=== PATIENT | male | born 1945 | race Caucasian/White ===

== ENCOUNTER 2020-09-18 14:44 | Outpatient (REF) | payer MEDICARE, SELFPAY ==
[2020-09-18 15:09] LABS: MANUAL DIFF FLAG NO
[2020-09-18 15:16] LABS: Basophils Absolute Auto 0.1 X10*3/uL (0.0-0.2); Basophils Percent Auto 0.7 % (0-2); Eosinophils Absolute Auto 0.2 X10*3/uL (0.0-0.4); Eosinophils Percent Auto 2.5 % (0-4); Hematocrit 45.7 % (42-52); Imm Gran Abs Auto 0.04 X10*3/uL (0.00-0.03); Imm Gran Pct Auto 0.4 % (0.0-0.4); Lymphocytes Absolute Auto 2.3 X10*3/uL (1.2-4.9); Lymphocytes Percent Auto 24.9 % (20-40); Mean Corpuscular HGB Conc 32.8 g/dl (31.0-36.0); Mean Corpuscular Hemoglobin 29.6 pg (27.0-33.0); Mean Corpuscular Volume 90.1 fL (80-98); Mean Platelet Volume 10.3 fL (9.4-12.4); Monocytes Absolute Auto 0.7 X10*3/uL (0.1-1.2); Monocytes Percent Auto 8.1 % (2-11); Neutrophils Absolute Auto 5.8 X10*3/uL (2.0-8.3); Neutrophils Percent Auto 63.4 % (45-73); Platelet Count 272 X10*3/uL (160-400); Red Blood Count 5.07 X10*6/uL (4.60-5.80); Red Cell Distribution Width 14.3 % (11.0-16.0); White Blood Count 9.1 X10*3/uL (4.8-10.8)
[2020-09-18 16:37] LABS: Thyroid Stimulating Hormone 1.32 uIU/mL (0.32-4.0)
[2020-09-18 16:58] LABS: Alanine Aminotransferase 37 U/L (0-40); Albumin Level 4.2 g/dL (3.5-5.0); Alkaline Phosphatase 107 U/L (39-117); Anion Gap 11 (12-20); Aspartate Amino Transferase 21 U/L (5-37); Bilirubin Total 0.5 mg/dL (0.0-1.0); Blood Urea Nitrogen 16 mg/dL (9-16); Calcium 9.6 mg/dL (8.4-10.2); Carbon Dioxide 30 mmol/L (22-29); Chloride 102 mmol/L (96-108); Cholesterol 209 mg/dL; Estimated Glomerular Filt Rate > 60; Glucose Random 85 mg/dL (60-115); HDL Cholesterol 44 mg/dL; LDL Cholesterol Calculated 127 mg/dl; Potassium 4.3 mmol/L (3.3-5.1); Sodium 139 mmol/L (135-145); Triglycerides 190 mg/dL
== END 2020-09-18 14:45 | disposition home or self-care (01) ==
LOC: HO.LAB 14:44
PROVIDERS: PCP Internal Medicine; Visit Provider Internal Medicine
DX: Z00.01 Encounter for general adult medical examination with abnormal findings (principal); F10.20 Alcohol dependence, uncomplicated; I10 Essential (primary) hypertension; M10.9 Gout, unspecified; Z72.0 Tobacco use
CPT/HCPCS: 36415; 80053; 80061; 84443; 84550; 85025

== ENCOUNTER 2020-12-26 14:05 | Outpatient (REF) | payer MEDICARE, SELFPAY ==
[2020-12-26 14:47] LABS: Uric Acid 7.2 mg/dL (3.4-7.0)
== END 2020-12-26 14:06 | disposition home or self-care (01) ==
LOC: HO.LAB 14:05
PROVIDERS: PCP Internal Medicine; Visit Provider Internal Medicine
DX: M10.9 Gout, unspecified (principal)
CPT/HCPCS: 36415; 84550

== ENCOUNTER 2021-03-13 16:19 | Outpatient (REF) | payer MEDICARE, SELFPAY ==
[2021-03-13 16:31] LABS: MANUAL DIFF FLAG NO
[2021-03-13 17:02] LABS: Basophils Absolute Auto 0.1 X10*3/uL (0.0-0.2); Basophils Percent Auto 0.7 % (0-2); Eosinophils Absolute Auto 0.1 X10*3/uL (0.0-0.4); Hemoglobin 12.1 g/dl (14.0-18.0); Imm Gran Abs Auto 0.06 X10*3/uL (0.00-0.03); Imm Gran Pct Auto 0.5 % (0.0-0.4); Lymphocytes Absolute Auto 1.1 X10*3/uL (1.2-4.9); Lymphocytes Percent Auto 9.4 % (20-40); Mean Corpuscular HGB Conc 31.8 g/dl (31.0-36.0); Mean Corpuscular Hemoglobin 27.9 pg (27.0-33.0); Mean Corpuscular Volume 87.6 fL (80.0-98.0); Mean Platelet Volume 10.5 fL (9.4-12.4); Monocytes Absolute Auto 0.9 X10*3/uL (0.1-1.2); Monocytes Percent Auto 7.8 % (2-11); Neutrophils Absolute Auto 9.6 x10*3/uL (2.0-8.3); Neutrophils Percent Auto 80.6 % (45-73); Platelet Count 484 X10*3/uL (160-400); Red Blood Count 4.34 X10*6/uL (4.60-5.80); Red Cell Distribution Width 13.5 % (11.0-16.0)
[2021-03-13 17:27] LABS: Alanine Aminotransferase 29 U/L (0-40); Albumin Level 3.7 g/dL (3.5-5.0); Alkaline Phosphatase 187 U/L (39-117); Anion Gap 20 (12-20); Aspartate Amino Transferase 25 U/L (5-37); Bilirubin Total 0.8 mg/dL (0.0-1.0); Blood Urea Nitrogen 11 mg/dL (9-16); C Reactive Protein 24.35 mg/dL (< or = 0.50); Calcium 9.1 mg/dL (8.4-10.2); Carbon Dioxide 24 mmol/L (22-29); Chloride 98 mmol/L (96-108); Estimated Glomerular Filt Rate > 60; Glucose Random 105 mg/dL (60-115); Sodium 138 mmol/L (135-145); Total Protein 7.2 g/dL (6.5-8.0)
[2021-03-13 17:38] LABS: Erythrocyte Sedimentation Rate 89 MM/HR (0-15)
[2021-03-13 17:48] LABS: Thyroid Stimulating Hormone 1.51 uIU/mL (0.32-4.0)
== END 2021-03-13 16:20 | disposition home or self-care (01) ==
LOC: HO.LAB 16:19
PROVIDERS: PCP Internal Medicine; Visit Provider Internal Medicine
DX: R63.0 Anorexia (principal); R63.4 Abnormal weight loss
CPT/HCPCS: 36415; 80053; 84443; 85025; 85652; 86140

== ENCOUNTER 2021-03-14 | Outpatient (REF) | payer MEDICARE, SELFPAY ==
[2021-03-14 13:47] LABS: Appearance Urine HAZY; Color Urine DK YELLOW; Glucose Urine UA NEG (NEG); Leukocyte Esterase Urine NEG (NEG); Nitrite Urine NEG (NEG); Specific Gravity - Urine 1.025 (1.005-1.025); Urine Blood NEG (NEG); Urine Ketones 15 MG/DL (NEG); Urine Protein TRACE MG/DL (NEG-TRACE)
[2021-03-14 13:57] LABS: RBC Urine 0 /HPF (0)
[2021-03-14 13:58] LABS: Amorphous Sediment Urine TRACE /LPF; Mucus Urine 1+ /LPF; Squamous Epithelial Cell Urine TRACE /LPF
== END 2021-03-14 00:01 | disposition home or self-care (01) ==
LOC: HO.LNP
PROVIDERS: Visit Provider Internal Medicine
DX: R63.0 Anorexia (principal)
CPT/HCPCS: 81001

== ENCOUNTER 2021-03-24 12:49 | Outpatient (REF) | payer MEDICARE, SELFPAY ==
[2021-03-24 13:03] LABS: MANUAL DIFF FLAG NO
[2021-03-24 13:53] LABS: Basophils Absolute Auto 0.1 X10*3/uL (0.0-0.2); Basophils Percent Auto 0.8 % (0-2); Eosinophils Absolute Auto 0.1 X10*3/uL (0.0-0.4); Eosinophils Percent Auto 1.2 % (0-4); Hematocrit 35.1 % (42.0-52.0); Imm Gran Abs Auto 0.04 X10*3/uL (0.00-0.03); Imm Gran Pct Auto 0.4 % (0.0-0.4); Immature Retic Fraction 16.6 % (2.3-13.4); Lymphocytes Absolute Auto 1.3 X10*3/uL (1.2-4.9); Lymphocytes Percent Auto 13.5 % (20-40); Mean Corpuscular HGB Conc 31.3 g/dl (31.0-36.0); Mean Corpuscular Hemoglobin 27.6 pg (27.0-33.0); Mean Platelet Volume 10.5 fL (9.4-12.4); Monocytes Absolute Auto 0.8 X10*3/uL (0.1-1.2); Monocytes Percent Auto 8.4 % (2-11); Neutrophils Absolute Auto 7.4 x10*3/uL (2.0-8.3); Neutrophils Percent Auto 75.7 % (45-73); Platelet Count 519 X10*3/uL (160-400); Red Blood Count 3.99 X10*6/uL (4.60-5.80); Retic HGB Equivalent 26.9 pg (30.0-35.0); Reticulocyte Percent 1.3 % (0.5-1.8); Reticulocytes Absolute 0.053 X10*6/uL (0.026-0.095); White Blood Count 9.8 X10*3/uL (4.8-10.8)
[2021-03-24 14:26] LABS: Alanine Aminotransferase 54 U/L (0-40); Aspartate Amino Transferase 59 U/L (5-37); C Reactive Protein 15.93 mg/dL (< or = 0.50); Iron 20 mcg/dL (45-160); Percent Iron Saturation 10 % (15-50); Total Iron Binding Capacity 207 mcg/dL (228-428); Unsaturated Iron Binding 187 ug/dL
[2021-03-24 14:37] LABS: Erythrocyte Sedimentation Rate 100 MM/HR (0-15)
[2021-03-24 14:58] LABS: Ferritin 1169 ng/mL (20-250)
[2021-03-24 15:13] LABS: Vitamin B12 408 pg/mL (200-900)
== END 2021-03-24 12:50 | disposition home or self-care (01) ==
LOC: HO.LAB 12:49
PROVIDERS: Visit Provider Internal Medicine
DX: D64.9 Anemia, unspecified (principal); R63.4 Abnormal weight loss; R16.0 Hepatomegaly, not elsewhere classified
CPT/HCPCS: 36415; 82607; 82728; 82746; 83540; 84450; 84460; 85025; 85045; 85652; 86140

== ENCOUNTER 2021-04-03 11:51 | Outpatient (REF) | payer MEDICARE, SELFPAY ==
--- NOTE | ~2021-04-03 | CT_ITS ---
EXAMINATION: CT abdomen pelvis w con, CT chest w con CLINICAL INFORMATION: Reason for Exam WEIGHT LOSS, ANEMIA COMPARISON: None. TECHNIQUE: IV contrast enhanced CT of the chest, abdomen and pelvis with multiple coronal and sagittal reformatted images. Intravenous Contrast: 85. Oral contrast utilized. This CT examination was performed using dose optimization techniques as appropriate, variously including the following: *Automated exposure control *Adjustment of mA and/or kV according to patient size (this includes techniques or standardized protocols for targeted exams where dose is matched to indication/reason for exam; i.e. extremities or head) *Use of iterative reconstruction technique DLP: 601 mGy-cm FINDINGS: Lungs: Mild chronic appearing biapical pleural parenchymal scarring is noted. Minimal scattered subpleural reticular nodular opacities are noted and have the appearance of minimal chronic parenchymal scarring. No suspicious pulmonary nodules. No focal pulmonary consolidation. Grossly normal pulmonary vasculature. Mediastinum: Mild scattered calcific and noncalcific atherosclerosis. Normal aortic caliber. Normal heart size. Partial visualization of moderate coronary artery calcific atherosclerosis with calcifications noted in the left anterior descending and right coronary arteries though the right coronary artery is largely obscured from visualization by motion artifact. CHEST WALL: No axillary lymphadenopathy or focal inflammatory changes. Liver: Small number scattered subcentimeter rounded low density foci which are too small to specifically characterize but are most likely to represent simple cysts are noted. A 2.7 cm diameter rounded low-density (6 Hounsfield units) focus is present in segment 5 and has the appearance of a simple cyst. Biliary system: Gallbladder is partially contracted. No biliary duct dilatation. Pancreas: Normal. Spleen: Normal. Adrenal glands: Normal. Kidneys: Benign-appearing low density 4.5 cm parapelvic cyst is present in the left kidney. A 4.8 cm diameter rounded low-density cyst is associated with the superior pole the right kidney. Both findings are benign in appearance and do not specifically warranted additional imaging follow-up. A 5 mm rounded low-density focus is present in the interpolar segment of the left kidney is too small to specifically characterize but is most likely to be benign. Making allowances for probable vascular calcifications, no definitive urolithiasis is visualized. Urinary bladder: Physiologically distended. Pelvic viscera: Normal size of the prostate. Normal appearance of the seminal vesicles. Gastrointestinal system: No intestinal dilatation or mural thickening. Normal appearance of the appendix. Oral contrast agent is noted within large and small bowel segments. No free intraperitoneal fluid or gas collections. Normal sigmoid and small bowel mesenteries. Normal appearance of the stomach. Abdominal wall: No hernias. Abdominal lymphovascular system: Diffuse calcific and noncalcific atherosclerosis. No lymphadenopathy. Osseous structures: Marked intervertebral disc space narrowing L5-S1 partial visualization of a mild posterior broad-based disc bulge. Multilevel anterior endplate osteophytosis within the thoracic and lumbar spine. No vertebral body compression deformities. Mild multilevel facet hypertrophic changes. CT/CT abdomen pelvis w con IMPRESSION: IV and oral contrast enhanced CT of the chest, abdomen and pelvis: *No acute abnormalities or findings suspicious for neoplasm. *Diffuse atherosclerosis including partially visualized multifocal coronary artery calcific atherosclerosis. *L5-S1 degenerative disc disease and partially visualized mild posterior broad-based disc bulge.
[2021-04-03] MEDS: iohexoL 350 MG/ML 100 ML INFUS..BTL IV (15:09)
[2021-04-03] MEDS: Barium Sulfate Oral (Berry) 450 ML ORAL.SUSP 900 ML PO (15:10)
== END 2021-04-03 11:52 | disposition home or self-care (01) ==
LOC: HO.CT 11:51
PROVIDERS: Visit Provider Internal Medicine
DX: R63.4 Abnormal weight loss (principal); D64.9 Anemia, unspecified; R16.0 Hepatomegaly, not elsewhere classified; D72.829 Elevated white blood cell count, unspecified; Z72.0 Tobacco use
CPT/HCPCS: 71260; 74177; Q9967

== ENCOUNTER 2021-04-17 15:32 | Outpatient (REF) | payer MEDICARE, SELFPAY ==
[2021-04-17 15:44] LABS: MANUAL DIFF FLAG NO
[2021-04-17 17:09] LABS: Basophils Absolute Auto 0.1 X10*3/uL (0.0-0.2); Basophils Percent Auto 0.9 % (0-2); Eosinophils Absolute Auto 0.1 X10*3/uL (0.0-0.4); Eosinophils Percent Auto 1.2 % (0-4); Hematocrit 32.9 % (42.0-52.0); Hemoglobin 9.9 g/dl (14.0-18.0); Imm Gran Abs Auto 0.03 X10*3/uL (0.00-0.03); Imm Gran Pct Auto 0.3 % (0.0-0.4); Lymphocytes Absolute Auto 1.1 X10*3/uL (1.2-4.9); Lymphocytes Percent Auto 12.3 % (20-40); Mean Corpuscular HGB Conc 30.1 g/dl (31.0-36.0); Mean Corpuscular Hemoglobin 25.9 pg (27.0-33.0); Mean Corpuscular Volume 86.1 fL (80.0-98.0); Mean Platelet Volume 10.5 fL (9.4-12.4); Monocytes Absolute Auto 0.8 X10*3/uL (0.1-1.2); Monocytes Percent Auto 8.9 % (2-11); Neutrophils Percent Auto 76.4 % (45-73); Platelet Count 504 X10*3/uL (160-400); Red Blood Count 3.82 X10*6/uL (4.60-5.80); Red Cell Distribution Width 14.2 % (11.0-16.0); White Blood Count 9.2 X10*3/uL (4.8-10.8)
[2021-04-17 17:40] LABS: Alanine Aminotransferase 31 U/L (0-40); Albumin Level 3.5 g/dL (3.5-5.0); Alkaline Phosphatase 188 U/L (39-117); Anion Gap 16 (12-20); Aspartate Amino Transferase 31 U/L (5-37); Bilirubin Total 0.4 mg/dL (0.0-1.0); Blood Urea Nitrogen 11 mg/dL (9-16); Calcium 9.2 mg/dL (8.4-10.2); Carbon Dioxide 25 mmol/L (22-29); Chloride 103 mmol/L (96-108); Estimated Glomerular Filt Rate > 60; Glucose Random 113 mg/dL (60-115); Iron 16 mcg/dL (45-160); Percent Iron Saturation 8 % (15-50); Potassium 4.4 mmol/L (3.3-5.1); Sodium 140 mmol/L (135-145); Total Iron Binding Capacity 207 mcg/dL (228-428); Total Protein 7.5 g/dL (6.5-8.0); Unsaturated Iron Binding 191 ug/dL
[2021-04-17 17:51] LABS: Ferritin 1050 ng/mL (20-250); Thyroid Stimulating Hormone 1.47 uIU/mL (0.32-4.0)
[2021-04-17 17:55] LABS: Uric Acid 5.2 mg/dL (3.4-7.0)
[2021-04-17 18:18] LABS: Erythrocyte Sedimentation Rate 102 MM/HR (0-15)
[2021-04-18 12:38] LABS: Immature Retic Fraction 14.1 % (2.3-13.4); Retic HGB Equivalent 25.6 pg (30.0-35.0); Reticulocyte Percent 1.5 % (0.5-1.8); Reticulocytes Absolute 0.056 X10*6/uL (0.026-0.095)
== END 2021-04-17 15:33 | disposition home or self-care (01) ==
LOC: HO.LAB 15:32
PROVIDERS: PCP Internal Medicine; Visit Provider Internal Medicine
DX: R63.4 Abnormal weight loss (principal); M10.9 Gout, unspecified; D64.9 Anemia, unspecified
CPT/HCPCS: 36415; 80053; 82728; 83540; 84134; 84443; 84550; 85025; 85045; 85652; 86140

== ENCOUNTER 2021-04-21 14:08 | Outpatient (REF) | payer MEDICARE, SELFPAY ==
--- NOTE | ~2021-04-21 | MR_ITS ---
EXAMINATION: MR BRAIN WITHOUT AND WITH CONTRAST CLINICAL INFORMATION: New-onset headache. Lump on top of head. Anorexia. Loss of weight. COMPARISON: None available. TECHNIQUE: MRI of the brain was obtained using routine sequences without and following the administration of 6 mL of Gadavist intravenous contrast. FINDINGS: No focal restricted diffusion is demonstrated to suggest acute or subacute cerebral ischemia. No evidence of acute or chronic hemorrhagic products on heme-sensitive imaging. Scattered periventricular and deep white matter T2 FLAIR hyperintensities consistent with mild underlying microangiopathy. Proportional prominence of the ventricles and sulcal spaces without evidence of obstructive hydrocephalus. No abnormal mass effect. No midline shift. Normal appearance of the pituitary gland. Normal positioning of the cerebellar tonsils. Normal arterial and venous vascular flow voids are present. No abnormal contrast enhancement. Normal, homogeneous marrow signal. No demonstrated overt abnormalities of the scalp. Mild mucosal thickening of the paranasal sinuses. Mild atelectasis of the right maxillary sinus. No signal abnormalities within the mastoids. MR/MR head/brain wo/w con IMPRESSION: 1. No acute intracranial abnormalities. No abnormal intracranial enhancement. 2. Mild underlying microangiopathy and generalized cerebral volume loss.
== END 2021-04-21 14:09 | disposition home or self-care (01) ==
LOC: HO.MRI 14:08
PROVIDERS: PCP Internal Medicine; Visit Provider Internal Medicine
DX: R51.9 Headache, unspecified (principal); R63.4 Abnormal weight loss; R63.0 Anorexia
CPT/HCPCS: 70553; A9585

== ENCOUNTER 2021-05-22 10:30 | Outpatient (REF) | payer MEDICARE, SELFPAY ==
[2021-05-22 10:49] LABS: MANUAL DIFF FLAG NO
[2021-05-22 11:33] LABS: Basophils Absolute Auto 0.1 X10*3/uL (0.0-0.2); Basophils Percent Auto 0.8 % (0-2); Eosinophils Absolute Auto 0.1 X10*3/uL (0.0-0.4); Eosinophils Percent Auto 0.8 % (0-4); Hemoglobin 9.6 g/dl (14.0-18.0); Imm Gran Abs Auto 0.02 X10*3/uL (0.00-0.03); Imm Gran Pct Auto 0.3 % (0.0-0.4); Lymphocytes Absolute Auto 1.1 X10*3/uL (1.2-4.9); Lymphocytes Percent Auto 14.3 % (20-40); Mean Corpuscular Hemoglobin 24.6 pg (27.0-33.0); Mean Corpuscular Volume 82.1 fL (80.0-98.0); Mean Platelet Volume 10.3 fL (9.4-12.4); Monocytes Absolute Auto 0.8 X10*3/uL (0.1-1.2); Neutrophils Absolute Auto 5.7 x10*3/uL (2.0-8.3); Neutrophils Percent Auto 73.8 % (45-73); Platelet Count 442 X10*3/uL (160-400); Red Cell Distribution Width 15.9 % (11.0-16.0); White Blood Count 7.7 X10*3/uL (4.8-10.8)
[2021-05-22 12:08] LABS: Erythrocyte Sedimentation Rate 97 MM/HR (0-15)
[2021-05-22 12:12] LABS: Alanine Aminotransferase 30 U/L (0-40); Albumin Level 3.7 g/dL (3.5-5.0); Alkaline Phosphatase 144 U/L (39-117); Amylase 46 U/L (28-100); Anion Gap 14 (12-20); Aspartate Amino Transferase 27 U/L (5-37); Bilirubin Total 0.3 mg/dL (0.0-1.0); Blood Urea Nitrogen 15 mg/dL (9-16); C Reactive Protein 9.14 mg/dL (< or = 0.50); Calcium 9.4 mg/dL (8.4-10.2); Carbon Dioxide 27 mmol/L (22-29); Chloride 103 mmol/L (96-108); Estimated Glomerular Filt Rate > 60; Glucose Random 116 mg/dL (60-115); Lipase 9 U/L (8-78); Potassium 4.3 mmol/L (3.3-5.1); Sodium 140 mmol/L (135-145); Total Protein 7.7 g/dL (6.5-8.0); Uric Acid 6.5 mg/dL (3.4-7.0)
[2021-05-22 12:33] LABS: TSH reflex Free T4 1.17 uIU/mL (0.32-4.0)
== END 2021-05-22 10:31 | disposition home or self-care (01) ==
LOC: HO.LAB 10:30
PROVIDERS: PCP Internal Medicine; Visit Provider Internal Medicine
DX: R63.4 Abnormal weight loss (principal); R68.81 Early satiety; M10.9 Gout, unspecified
CPT/HCPCS: 36415; 80053; 82150; 83690; 84443; 84550; 85025; 85652; 86140

== ENCOUNTER 2021-06-18 13:38 | Outpatient (REF) | payer MEDICARE, SELFPAY ==
[2021-06-18 14:01] LABS: MANUAL DIFF FLAG NO
[2021-06-18 14:17] LABS: Basophils Absolute Auto 0.1 X10*3/uL (0.0-0.2); Basophils Percent Auto 0.7 % (0-2); Eosinophils Absolute Auto 0.1 X10*3/uL (0.0-0.4); Eosinophils Percent Auto 1.4 % (0-4); Hematocrit 34.7 % (42.0-52.0); Hemoglobin 10.4 g/dl (14.0-18.0); Imm Gran Abs Auto 0.03 X10*3/uL (0.00-0.03); Imm Gran Pct Auto 0.4 % (0.0-0.4); Lymphocytes Absolute Auto 1.2 X10*3/uL (1.2-4.9); Lymphocytes Percent Auto 14.5 % (20-40); Mean Corpuscular Hemoglobin 24.7 pg (27.0-33.0); Mean Corpuscular Volume 82.4 fL (80.0-98.0); Mean Platelet Volume 10.1 fL (9.4-12.4); Monocytes Absolute Auto 0.7 X10*3/uL (0.1-1.2); Monocytes Percent Auto 8.8 % (2-11); Neutrophils Percent Auto 74.2 % (45-73); Platelet Count 383 X10*3/uL (160-400); Red Blood Count 4.21 X10*6/uL (4.60-5.80); Red Cell Distribution Width 17.3 % (11.0-16.0); White Blood Count 8.1 X10*3/uL (4.8-10.8)
[2021-06-18 14:44] LABS: Alanine Aminotransferase 13 U/L (0-40); Alkaline Phosphatase 120 U/L (39-117); Amylase 68 U/L (28-100); Anion Gap 13 (12-20); Aspartate Amino Transferase 15 U/L (5-37); Bilirubin Total 0.4 mg/dL (0.0-1.0); Blood Urea Nitrogen 12 mg/dL (9-16); C Reactive Protein 8.68 mg/dL (< or = 0.50); Calcium 9.7 mg/dL (8.4-10.2); Carbon Dioxide 28 mmol/L (22-29); Chloride 101 mmol/L (96-108); Estimated Glomerular Filt Rate > 60; Glucose Random 114 mg/dL (60-115); Lipase 17 U/L (8-78); Potassium 4.8 mmol/L (3.3-5.1); Sodium 137 mmol/L (135-145); Total Protein 7.7 g/dL (6.5-8.0)
[2021-06-18 14:57] LABS: Erythrocyte Sedimentation Rate 86 MM/HR (0-15)
[2021-06-19 12:55] LABS: Prot Elec - Albumin 3.6 g/dL (3.8-4.8); Prot Elec - Alpha1 0.5 g/dL (0.2-0.3); Prot Elec - Alpha2 1.1 g/dL (0.5-0.9); Prot Elec - Beta 1 0.5 g/dL (0.4-0.6); Prot Elec - Beta 2 0.5 g/dL (0.2-0.5); Prot Elec - Gamma 1.5 g/dL (0.8-1.7); Prot Elec - Total Protein 7.7 g/dL (6.1-8.1)
== END 2021-06-18 13:39 | disposition home or self-care (01) ==
LOC: HO.LAB 13:38
PROVIDERS: PCP Internal Medicine; Visit Provider Internal Medicine
DX: R63.4 Abnormal weight loss (principal); D64.9 Anemia, unspecified
CPT/HCPCS: 36415; 80053; 82150; 83690; 84165; 85025; 85652; 86140

== ENCOUNTER 2021-07-30 10:56 | Emergency (ER) | payer MEDICARE, SELFPAY ==
--- NOTE | ~2021-07-30 | CT_ITS ---
EXAMINATION: CT LUMBAR SPINE WITHOUT CONTRAST CLINICAL INFORMATION: Atraumatic back pain radiating to left leg COMPARISON: Previous CT of the abdomen report March 2021. Images not available for comparison. TECHNIQUE: Axial images through the lumbar spine without contrast. Sagittal and coronal reconstructions on the technologist workstation were performed. This CT examination was performed using dose optimization techniques as appropriate, variously including the following: *Automated exposure control *Adjustment of mA and/or kV according to patient size (this includes techniques or standardized protocols for targeted exams where dose is matched to indication/reason for exam; i.e. extremities or head) *Use of iterative reconstruction technique DLP; 294 mGy-cm FINDINGS: Bone alignment is normal. No fracture or dislocation is seen. Spinal levels: T12-L1: Normal. L1-L2: Normal. L2-L3: Normal. L3-L4: There is diffuse disc bulge. There is mild secondary spinal stenosis due to disc bulge, short pedicles and facet arthritis. No disc herniation is seen. L4-L5: There is diffuse disc bulge. There is mild secondary spinal stenosis due to disc bulge, short pedicles and facet arthritis. No disc herniation is seen. L5-S1: There is diffuse disc bulge. No disc herniation is seen. Spinal canal, lateral recesses and neural foramen are patent. There is evidence of atherosclerotic disease. No aneurysm is seen. Abdominal aorta measures maximum 3 cm in the upper abdominal aorta. There is a cyst in the right lobe of the liver and bilateral kidneys with upper pole cortical cyst and left renal peripelvic cyst. There is curvilinear calcification in the central left kidney/renal hilum and adjacent slightly high attenuation soft tissue. Appearance is questionable for possible left renal artery aneurysm. CT/CT lumbar spine wo con IMPRESSION: No disc herniation. Diffuse disc bulge and mild secondary spinal stenosis at L3-L4 and L4-L5. Diffuse disc bulge at L5-S1. Atherosclerotic disease. Slightly dilated upper abdominal aorta measuring 3 cm. No abdominal aortic aneurysm. Liver and bilateral renal cysts. Question left renal artery aneurysm in the left renal hilum. Direct comparison with previous CT March 2021 when images are available will be made.
[2021-07-30 11:49] VITALS: BP 171/71; PULSE 90; RESP 19; TEMP 36.3; O2SAT 99; BMI 18.8
--- NOTE | 2021-07-30 13:12 | ED.BACK ---
HPI - Back Pain/Injury General Chief Complaint: Back Pain/Injury <JAMIE Carbajal Last Filed: 07/30/21 16:08> Stated Complaint: back pain <JAMIE Carbajal Last Filed: 07/30/21 16:08> Time Seen by Provider: 07/30/21 12:29 <JAMIE Carbajal Last Filed: 07/30/21 16:08> Source: patient and family <JAMIE Carbajal Last Filed: 07/30/21 16:08> Mode of arrival: ambulatory <JAMIE Carbajal Last Filed: 07/30/21 16:08> Limitations: no limitations <JAMIE Carbajal Last Filed: 07/30/21 16:08> History of Present Illness HPI Narrative: 76-year-old male with a past medical history of gout presenting to the ED with complaints of atraumatic lower back pain/left buttocks pain radiating down his left leg over the past few days worse today. Reports that he has been having so much pain with walking that he has had to use a walker which he normally does not use any assistive devices. He cannot recall any injury or any recent heavy lifting or falls. He denies any fevers, chills, dizziness, headaches, neck pain/stiffness, trouble swallowing or breathing, chest pain or shortness of breath, dyspnea on exertion, orthopnea, palpitations, paresthesias, nausea/vomiting/diarrhea or constipation, black or bloody stools, urinary bowel incontinence or retention, dysuria, hematuria, rashes, history of IV drug use, history of cancer, saddle anesthesias or any other symptoms complaints or concerns at this time. <JAMIE Carbajal Last Filed: 07/30/21 16:08> MD elicited complaint: back pain <JAMIE Carbajal Last Filed: 07/30/21 16:08> Onset (ago): day(s) (Past few days worse today) <JAMIE Carbajal Last Filed: 07/30/21 16:08> Timing: constant and progressively worsening <JAMIE Carbajal Last Filed: 07/30/21 16:08> Severity: severe <JAMIE Carbajal Last Filed: 07/30/21 16:08> Pain scale (0-10): 10 <JAMIE Carbajal - Last Filed: 07/30/21 16:08> Similar Symptoms Previously: No <JAMIE Carbajal - Last Filed: 07/30/21 16:08> Quality: aching <JAMIE Carbajal - Last Filed: 07/30/21 16:08> Location: lumbar spine <JAMIE Carbajal - Last Filed: 07/30/21 16:08> Radiation: buttocks, left upper leg and left leg below the knee <JAMIE Carbajal - Last Filed: 07/30/21 16:08> Exacerbating factors: movement, walking and lifting <JAMIE Carbajal - Last Filed: 07/30/21 16:08> Relieving factors: none <JAMIE Carbajal - Last Filed: 07/30/21 16:08> Context: unknown <JAMIE Carbajal - Last Filed: 07/30/21 16:08> Associated symptoms: denies other symptoms <JAMIE Carbajal - Last Filed: 07/30/21 16:08> Work related injury: No <JAMIE Carbajal Last Filed: 07/30/21 16:08> Related Data Home Medications: Previous Rx's Medication Instructions Recorded colchicine 0.6 mg tablet 0.6 mg PO DAILY #3 tab 09/12/20 prednisone 20 mg tablet 20 mg PO .COMPLEX #18 tab 09/12/20 diazepam 5 mg tablet (Valium) 5 mg PO TID PRN #14 tab 07/30/21 naproxen 500 mg tablet 500 mg PO BID PRN #14 tab 07/30/21 prednisone 20 mg tablet 40 mg PO DAILY 5 Days #10 tab 07/30/21 <JAMIE Carbajal - Last Filed: 07/30/21 16:08> Allergies/Adverse Reactions: Allergies Allergy/AdvReac Type Severity Reaction Status Date / Time No Known Allergies Allergy Verified 07/30/21 12:04 <JAMIE Carbajal Last Filed: 07/30/21 16:08> Review of Systems Review of Systems: Constitutional : No trauma, No Weight loss, No Fever, No Chills, ENT/Mouth : No Hearing loss, No Ear Pain, No Nasal Congestion, No Sinus Pain, No Hoarseness, No sore throat, No Rhinorrhea, No Swallowing Difficulty Cardiovascular : No Chest Pain, No SOB Respiratory : No Cough, No Dyspnea Gastrointestinal : No Nausea, No Vomiting, No Diarrhea, No abdominal Pain, No Hematochezia, No Melena Genitourinary : No Dysuria, No Urinary Frequency, No Hematuria, No Urinary or Bowel Incontinence/retention Musculoskeletal : + Back pain, No neck pain, No joint stiffness, No joint swelling Skin : No Skin Lesions, No rash or signs of infection Neuro : No Weakness, No radiation, No Numbness, No Paresthesias, No headache, no loss of bowel or bladder incontinence, no saddle anesthesia, Focal weakness, No radiation Denies history of IV drug usage. <JAMIE Carbajal - Last Filed: 07/30/21 16:08> Yes all other systems are reviewed and are negative <JAMIE Carbajal - Last Filed: 07/30/21 16:08> [facility] Past Medical History Attestation statement: The following information was validated with the patient. <JAMIE Carbajal - Last Filed: 07/30/21 16:08> Social History Social History: Social History Advance Directives: No Advance Directives Information Provided: Yes <JAMIE Carbajal - Last Filed: 07/30/21 16:08> Physical Exam Vital Signs: Vital Signs: Last Vital Signs Temp 97.3 F 07/30/21 11:49 Pulse 90 07/30/21 11:49 Resp 19 07/30/21 11:49 BP 171/71 H 07/30/21 11:49 Pulse Ox 99 07/30/21 11:49 BMI result Body Mass Index 18.8 vital signs have been reviewed as normal and appeared to be correct. Blood pressure 171/71. Heart rate normal. Respiration rate normal. Temperature normal. Oxygen saturation normal. <JAMIE Carbajal - Last Filed: 07/30/21 16:08> Appearance: Alert. Oriented X3. No acute distress. Head: Normal external exam. Normocephalic. Atraumatic. No Gallardo signs noted. No raccoon eyes noted Eyes: PERRLA. EOMI. Conjunctiva and sclera normal. Eyelids normal. ENT: EAC normal. TM's Normal. Pharynx normal. Uvula midline. Moist mucous membranes. No trismus noted. No drooling noted. No muffled voice noted. Neck: Normal inspection. Neck supple. FROM. No adenopathy. Thyroid Normal. No meningeal signs. No neck mass noted. CVS: Normal heart rate and rhythm. Heart sound normal. No murmurs noted. Pulses normal throughout. Respiratory: No respiratory distress. Painless inspiration. Breath sounds normal. No wheezes/rales/rhonchi noted. Chest nontender. No accessory muscle usage noted or decreased air movement noted. Abdomen: Soft and nontender. Bowel sounds normal in all 4 quadrants. No distention noted. No organomegaly noted. No visible injury noted. Back: No CVA tenderness. Full range of motion noted. No obvious deformities, or edema. Mild para-spinal muscular tenderness from lumbar region to coccyx. Full ROM in back and lower extremities. 5/5 strength hip extension/flexion, abduction, adduction. Mild Lumbar pain with hip flexion against resistance. Straight leg raise test negative on right; Straight leg raise test positive on left; Reflexes normal ankle and knee bilaterally; EHL motor strength normal bilaterally. No rashes/lesion/induration/fluctuance or signs infection noted. Skin: Skin warm and dry. Normal skin color. Normal skin turgor. No rashes/lesions/lacerations noted. Extremities: No lower extremity edema. Extremities exhibit normal range of motion. Extremities nontender. Neuro: Oriented X 3. No motor deficit. No sensory deficit. Reflexes normal. Patient has a normal steady gait. <JAMIE Carbajal - Last Filed: 07/30/21 16:08> Course Course Course Narrative: 12:45pm - Pt c likely muscular pain, but could be herniated disc. Neuro exam shows no deficits. Not c/w AAA/epidural abscess/dissection.No high risk Hx (Incont, fever, immunosupp, recent surgery/LP, coag, signif trauma, wt loss, puls mass, hx/o Ca, TB, or IVDU) to warrant MRI today. Not c/w Pyelo/UTI/kidney stone/spinal fx. Not cauda equina syndrome. Will obtain a CT scan of lumbar spine due to patient denies ever having back pain in the past provide 60 mg of IM Toradol and 5 mg of IM Valium and some prednisone and re-evaluate. <JAMIE Carbajal - Last Filed: 07/30/21 16:08> Reevaluation(s) Reevaluation #1: - CT scan of lumbar spine without contrast revealed no disc herniation and diffuse disc bulging and spinal stenosis. It was also noted that he has actual sclerotic disease with a slightly dilated upper abdominal aorta measuring 3 cm. No abdominal aortic aneurysm. Also noted to have possible bilateral liver and renal cyst. They are questioning a left renal artery aneurysm otherwise no other acute processes were noted. Therefore printed out the results and handed to the patient and his family member at bedside and explained to him that he should have further evaluation treatment by his PCP as an outpatient basis on the incidental findings of his dilation of his upper abdominal aorta and possible left renal artery aneurysm. - patient feeling much better after the Toradol/Valium therefore will DC home with the same meds and a course of steroids and instructions return if any new or worsening symptoms to follow up with PCP. Patient and family at bedside understand agree this plan. <JAMIE Carbajal - Last Filed: 07/30/21 16:08> Time: 16:00 <JAMIE Carbajal - Last Filed: 07/30/21 16:08> MDM - Back Pain/Injury Medical Records Attestation: I reviewed the patient's medical records. <JAMIE Carbajal - Last Filed: 07/30/21 16:08> Lab Data Attestation: I reviewed the patient's lab results. <JAMIE Carbajal - Last Filed: 07/30/21 16:08> Imaging Data CT scan of lumbar spine without contrast: Attestation: I personally reviewed and interpreted this imaging study as follows: <JAMIE Carbajal Last Filed: 07/30/21 16:08> Radiologist's impression: FINDINGS: Bone alignment is normal. No fracture or dislocation is seen.? Spinal levels: T12-L1: Normal.? L1-L2: Normal.? L2-L3: Normal.? L3-L4: There is diffuse disc bulge. There is mild secondary spinal stenosis due to disc bulge, short pedicles and facet arthritis. No disc herniation is seen. L4-L5: There is diffuse disc bulge. There is mild secondary spinal stenosis due to disc bulge, short pedicles and facet arthritis. No disc herniation is seen.? L5-S1: There is diffuse disc bulge. No disc herniation is seen. Spinal canal, lateral recesses and neural foramen are patent. There is evidence of atherosclerotic disease. No aneurysm is seen. Abdominal aorta measures maximum 3 cm in the upper abdominal aorta. There is a cyst in the right lobe of the liver and bilateral kidneys with upper pole cortical cyst and left renal peripelvic cyst. There is curvilinear calcification in the central left kidney/renal hilum and adjacent slightly high attenuation soft tissue. Appearance is questionable for possible left renal artery aneurysm. CT/CT lumbar spine wo con IMPRESSION: No disc herniation. Diffuse disc bulge and mild secondary spinal stenosis at L3-L4 and L4-L5. Diffuse disc bulge at L5-S1. Atherosclerotic disease. Slightly dilated upper abdominal aorta measuring 3 cm. No abdominal aortic aneurysm. Liver and bilateral renal cysts. Question left renal artery aneurysm in the left renal hilum. Direct comparison with previous CT March 2021 when images are available will be made. <JAMIE Carbajal - Last Filed: 07/30/21 16:08> Discharge Plan Discharge Clinical Impression: Spinal stenosis of lumbar region, Sciatica, Renal cyst, Benign liver cyst, Aneurysm of left renal artery, Bulging lumbar disc <JAMIE Carbajal Last Filed: 07/30/21 16:08> Patient Disposition: Home, Self-Care <JAMIE Carbajal - Last Filed: 07/30/21 16:08> Instructions: Sciatica (ED), Lumbar Spinal Stenosis (ED), Kidney Cyst (ED) <JAMIE Carbajal Last Filed: 07/30/21 16:08> Prescriptions: New naproxen 500 mg tablet 500 mg PO BID PRN (Reason: pain) Qty: 14 0RF diazepam [Valium] 5 mg tablet 5 mg PO TID PRN (Reason: muscle spasm) Qty: 14 0RF prednisone 20 mg tablet 40 mg PO DAILY 5 Days Qty: 10 0RF No Action prednisone 20 mg tablet 20 mg PO .COMPLEX Qty: 18 0RF Rx Instructions: 20 mg PO 3 p.o. daily for 3 days followed by 2 p.o. daily for 3 days followed by 1 p.o. daily for 3 days; colchicine 0.6 mg tablet 0.6 mg PO DAILY Qty: 3 0RF <JAMIE Carbajal - Last Filed: 07/30/21 16:08> Referrals: Alvin Bee MD [Primary Care Provider] - <JAMIE Carbajal - Last Filed: 07/30/21 16:08> Print Language: U[place]ayan <JAMIE Carbajal - Last Filed: 07/30/21 16:08>
[2021-07-30] MEDS: diazePAM 10 MG/2 ML CARTRIDGE 5 MG IM (13:27)
[2021-07-30] MEDS: Ketorolac Tromethamine 60 MG/2 ML VIAL IM (13:27)
[2021-07-30] MEDS: predniSONE 20 MG TABLET 60 MG PO (13:28)
== END 2021-07-30 16:17 | disposition home or self-care (01) ==
PROVIDERS: Emergency Provider Emergency Medicine; PCP Internal Medicine
DX: M48.061 Spinal stenosis, lumbar region without neurogenic claudication (principal); M51.26 Other intervertebral disc displacement, lumbar region; M54.30 Sciatica, unspecified side; N28.1 Cyst of kidney, acquired; K76.89 Other specified diseases of liver; I72.2 Aneurysm of renal artery
CPT/HCPCS: 72131; 96372; 99283; 99284; J1885; J3360

== ENCOUNTER 2021-08-13 09:31 | Day surgery (SDC) | payer MEDICARE, SELFPAY ==
[2021-08-08 11:05] VITALS: BMI 20.9
--- NOTE | 2021-08-12 10:32 | P.CONAN_ITS ---
Documented by User: Christie Hicks NP 08/12/21 10:34 HPI - Anesthesia Eval Consult details Narrative: 76yo M for Upper Endoscopy PMFSH Active Problems Active Problems: All Active Problems (Updated 08/08/21 @ 11:08 by Daniella Chappell RN) Gout attack (Acute) Past Medical History Medical History Arthritis Cough GERD (gastroesophageal reflux disease) Gout Hx of low back pain Smoker Surgical History Surgical History (Updated 08/08/21 @ 11:02 by Daniella Chappell RN) H/O elbow surgery Social History Social History Are you a primary career education teacher to a significant other at home: No Do you presently have visiting nurse or other home services: No Patient Tobacco Use Status: Current everyday Tobacco user Tobacco use type: Cigarette Cigarette Packs Per Day: 1 Cigarettes Per Day: 20.0 Years Smoked: 60+ Smoked in Last 30 Days: Yes Patient Interested in Nicotine Replacement: No Use of substances other than those prescribed or required for medical reasons: No Are you DNR?: No Advance Directives: No Advance Directives Information Provided: Yes Advance Directives on File: No Poor oral hygiene: No Meds Allergies Allergy/AdvReac Type Severity Reaction Status Date / Time No Known Allergies Allergy Verified 08/08/21 11:02 Home Medications Medication Instructions Recorded Confirmed Last Taken Type colchicine 0.6 mg tablet 0.6 mg PO DAILY PRN 08/08/21 08/08/21 Unknown History diazepam 5 mg tablet (Valium) 5 mg PO TID PRN 08/08/21 08/08/21 Unknown History omeprazole 40 mg capsule,delayed 1 cap PO QAM 08/08/21 08/08/21 Unknown History release Exam Exam Date and Time: August 12, 2021 1032 Height,Weight and Vital Signs: Height 5 ft 8.5 in Weight 63.503 kg Pertinent Lab Results Pertinent Lab Results: Laboratory Tests 06/18/21 06/18/21 13:59 13:59 WBC 8.1 Hgb 10.4 L Hct 34.7 L Plt Count 383 Sodium 137 Potassium 4.8 Chloride 101 Carbon Dioxide 28 BUN 12 Creatinine 0.89 Assessment and Plan Assessment Anesthesia Assessment: Chart Reviewed Documented by User: Yemi Carrasquillo MD 08/13/21 15:03 HPI - Anesthesia Eval Consult details Narrative: 76yo M for Upper Endoscopy back pain with radiation to LE PMFSH Past Medical History Medical History Arthritis Cough GERD (gastroesophageal reflux disease) Gout Hx of low back pain Smoker Functional capacity: independent ambulation Family History Family history of problems with anesthesia: No Surgical History Surgical History (Updated 08/08/21 @ 11:02 by Daniella Chappell RN) H/O elbow surgery History of Problems with Anesthesia: No Social History Social History Are you a primary career education teacher to a significant other at home: No Do you presently have visiting nurse or other home services: No Patient Tobacco Use Status: Current everyday Tobacco user Tobacco use type: Cigarette Cigarette Packs Per Day: 1 Cigarettes Per Day: 20.0 Years Smoked: 60+ Smoked in Last 30 Days: Yes Patient Interested in Nicotine Replacement: No Use of substances other than those prescribed or required for medical reasons: No Are you DNR?: No Advance Directives: No Advance Directives Information Provided: Yes Advance Directives on File: No Poor oral hygiene: No Meds Allergies Allergy/AdvReac Type Severity Reaction Status Date / Time No Known Allergies Allergy Verified 08/08/21 11:02 Home Medications Medication Instructions Recorded Confirmed Last Taken Type colchicine 0.6 mg tablet 0.6 mg PO DAILY PRN 08/08/21 08/08/21 Unknown History diazepam 5 mg tablet (Valium) 5 mg PO TID PRN 08/08/21 08/08/21 Unknown History omeprazole 40 mg capsule,delayed 1 cap PO QAM 08/08/21 08/08/21 Unknown History release Exam Airway Mallampati Class: III TM Dist: >3cm Neck ROM: Full Loose/Missing/Broken Teeth: Yes (Chipped , overall poor dentition ) Heart: S1,S2 Lungs: b/l breath sounds Assessment and Plan Assessment Anesthesia Assessment: Anesthesia Plan Discussed Final Anesthetic Review Family History of Problems with Anesthesia: No History of Problems with Anesthesia: No NPO: Yes ASA Class: III Final Preanesthetic Review: Meds/Allgs Chart Reviewed, Consent Obtained/Reviewed and Anes Risks/Benef Reviewed Patient Risk: High Procedure Risk: Intermediate Anesthetic Plan Anesthetic Plan: MAC: Disposition: Standard PACU
[2021-08-13 10:17] VITALS: BP 184/83; PULSE 101; RESP 18; TEMP 36.8; O2SAT 99
[2021-08-13] MEDS: Lactated Ringers 1,000 ML 100 ML IVCONT (10:22)
[2021-08-13 11:40] VITALS: BP 98/45; PULSE 94; RESP 16; TEMP 36.8; O2SAT 97
--- NOTE | 2021-08-13 11:43 | PM.OP ---
Brief Operative Note Date of Service: 08/13/21 Pre-op diagnosis: Anorexia, Weight loss Post-op diagnosis: other (Duodenal polyps, GERD, Hiatal hernia) Procedure: EGD with biopsies Surgeon: Markus Coe Anesthesia: MAC Was an Production Helper used for this Procedure?: No Estimated blood loss (mL): 2.0 Pathology: other (A. 2nd portion of duodenum, R/O polyp B. Duodenal bulb, R/O polyp C. Gastric antrum D. EG Junction at 40cm) Condition: stable Disposition: PACU
[2021-08-13 11:53] VITALS: BP 144/71; PULSE 94; RESP 16; TEMP 36.7; O2SAT 98
--- NOTE | 2021-08-13 22:37 | OP_ITS ---
SURGEON: Markus Coe MD INDICATIONS: The patient presents for evaluation of early satiety, anorexia, and weight loss. Full consent was obtained from him for this, including risks of bleeding and perforation. PREOPERATIVE DIAGNOSIS: POSTOPERATIVE DIAGNOSIS: PROCEDURE PERFORMED: Esophagogastroduodenoscopy with biopsies. ESTIMATED BLOOD LOSS: COMPLICATIONS: ANESTHESIA: Monitored anesthesia care. ASSISTANTS: SPECIMENS: PREOPERATIVE DIAGNOSES: Early satiety, anorexia, weight loss. POSTOPERATIVE DIAGNOSES: Early satiety, anorexia, weight loss, rule out duodenal polyps, small hiatal hernia, gastroesophageal reflux. DESCRIPTION OF PROCEDURE: The patient was placed in the left lateral decubitus position. The Olympus video gastroscope was passed in the posterior oropharynx and upper esophagus under direct vision. The scope was passed slowly into the distal esophagus. The gastroesophageal junction appeared at 40 cm. This area was somewhat irregular with some friability and erythema. There was no evidence of any ulceration or mass. There was a small hiatal hernia. The scope was advanced to the pylorus and the duodenum was cannulated to the descending portion. The duodenum including the bulb was carefully inspected. In the second portion of the duodenum were several areas on folds that appeared to be somewhat polypoid and possibly adenomatous in appearance. Multiple biopsies were obtained from those areas.. In the distal portion of the duodenal bulb was also what appeared to be a polypoid and adenomatous appearing area that was also biopsied several times. There was no mass nor ulceration otherwise. The scope was withdrawn back into the stomach. The gastric antrum and body appeared normal with good peristalsis. Biopsies were obtained from the gastric antrum. The scope was retroflexed visualizing the proximal stomach carefully which appeared normal, without any sign of mass or ulceration. The scope was straightened and withdrawn back to the esophagus. Biopsies were obtained at the EG junction at 40 cm. Proximal to this, the esophageal mucosa appeared normal. The scope was withdrawn from the patient. He tolerated the procedure well and was returned to the recovery area in stable condition. IMPRESSION: 1. Rule out duodenal polyps. 2. 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 3. Rule out gastritis and/or Helicobacter pylori. PLAN: The results of the biopsies will be checked. Based on these findings, I do not think they would account for his clinical picture of the weight loss, nor the very elevated sed rate and C-reactive protein. He will be seen in followup for an office visit. This has been discussed with his daughter. MD UNIQUE Luevano/FAHAD / [id number] MTDD
== END 2021-08-13 12:26 | disposition home or self-care (01) ==
PROVIDERS: PCP Internal Medicine; Visit Provider Internal Medicine
PROC: 0DJ08ZZ Inspection of Upper Intestinal Tract, Via Natural or Artificial Opening Endoscopic (ICD-10-PCS; CPT 43235; principal; 2021-08-13 10:40)
DX: R63.4 Abnormal weight loss (principal); Z68.1 Body mass index [BMI] 19.9 or less, adult; D13.2 Benign neoplasm of duodenum; K21.9 Gastro-esophageal reflux disease without esophagitis; K22.70 Barrett's esophagus without dysplasia; K29.50 Unspecified chronic gastritis without bleeding; K44.9 Diaphragmatic hernia without obstruction or gangrene; M10.9 Gout, unspecified; D64.9 Anemia, unspecified; R70.0 Elevated erythrocyte sedimentation rate; R79.82 Elevated C-reactive protein (CRP); M54.50 Low back pain, unspecified; Z79.899 Other long term (current) drug therapy; Z79.52 Long term (current) use of systemic steroids; Z79.1 Long term (current) use of non-steroidal anti-inflammatories (NSAID); F17.210 Nicotine dependence, cigarettes, uncomplicated
CPT/HCPCS: 43239; 88305; 88342; J2250; J3010

== ENCOUNTER 2021-08-26 15:15 | Outpatient (REF) | payer MEDICARE, SELFPAY ==
[2021-08-26 15:44] LABS: MANUAL DIFF FLAG NO
[2021-08-26 16:00] LABS: Basophils Absolute Auto 0.1 X10*3/uL (0.0-0.2); Basophils Percent Auto 0.8 % (0-2); Eosinophils Absolute Auto 0.1 X10*3/uL (0.0-0.4); Eosinophils Percent Auto 1.2 % (0-4); Hematocrit 37.1 % (42.0-52.0); Hemoglobin 11.8 g/dl (14.0-18.0); Imm Gran Abs Auto 0.02 X10*3/uL (0.00-0.03); Imm Gran Pct Auto 0.3 % (0.0-0.4); Lymphocytes Percent Auto 13.6 % (20-40); Mean Corpuscular HGB Conc 31.8 g/dl (31.0-36.0); Mean Corpuscular Hemoglobin 26.2 pg (27.0-33.0); Mean Corpuscular Volume 82.4 fL (80.0-98.0); Monocytes Absolute Auto 0.7 X10*3/uL (0.1-1.2); Monocytes Percent Auto 9.5 % (2-11); Neutrophils Absolute Auto 5.5 x10*3/uL (2.0-8.3); Neutrophils Percent Auto 74.6 % (45-73); Platelet Count 329 X10*3/uL (160-400); Red Cell Distribution Width 17.5 % (11.0-16.0); White Blood Count 7.4 X10*3/uL (4.8-10.8)
[2021-08-26 16:42] LABS: Alanine Aminotransferase 11 U/L (0-40); Albumin Level 4.3 g/dL (3.5-5.0); Alkaline Phosphatase 120 U/L (39-117); Anion Gap 15 (12-20); Aspartate Amino Transferase 16 U/L (5-37); Bilirubin Direct 0.2 mg/dL (0.0-0.5); Bilirubin Total 0.6 mg/dL (0.0-1.0); Blood Urea Nitrogen 19 mg/dL (9-16); Calcium 10.1 mg/dL (8.4-10.2); Carbon Dioxide 26 mmol/L (22-29); Chloride 104 mmol/L (96-108); Estimated Glomerular Filt Rate > 60; Glucose Random 104 mg/dL (60-115); Iron 25 mcg/dL (45-160); Percent Iron Saturation 8 % (15-50); Potassium 4.8 mmol/L (3.3-5.1); Sodium 140 mmol/L (135-145); Total Iron Binding Capacity 299 mcg/dL (228-428); Total Protein 8.1 g/dL (6.5-8.0); Unsaturated Iron Binding 274 ug/dL
[2021-08-26 16:46] LABS: Erythrocyte Sedimentation Rate 65 MM/HR (0-15)
[2021-08-26 17:03] LABS: Ferritin 387 ng/mL (20-250); TSH reflex Free T4 2.07 uIU/mL (0.32-4.0)
[2021-08-27 13:27] LABS: Vitamin B12 369 pg/mL (200-900)
[2021-08-28 14:30] LABS: Gliadin Deamidated IgA Ab <1.0 U/mL; Gliadin Deamidated IgG Ab <1.0 U/mL
[2021-08-28 18:31] LABS: Immunoglobulin A 309 mg/dL (70-320)
[2021-08-29 14:39] LABS: Transglutaminase IgA <1.0 U/mL
[2021-08-29 14:54] LABS: Immunoglobulin A 308 mg/dL (70-320); Immunoglobulin G 1412 mg/dL (600-1540)
[2021-09-02 13:41] LABS: Endomysial IgA Antibody Negative (Negative)
== END 2021-08-26 15:16 | disposition home or self-care (01) ==
LOC: HO.LAB 15:15
PROVIDERS: Visit Provider Internal Medicine
DX: D64.9 Anemia, unspecified (principal); R63.4 Abnormal weight loss
CPT/HCPCS: 36415; 80053; 82248; 82607; 82728; 82784; 83540; 84443; 85025; 85652; 86140; 86231; 86258; 86364

== ENCOUNTER 2021-09-22 11:41 | Day surgery (SDC) | payer MEDICARE, SELFPAY ==
--- NOTE | 2021-09-19 10:06 | HO.ANESPROP2 ---
Documented by User: Christie Hicks NP 09/19/21 10:07 HPI - Anesthesia Eval Consult details Narrative: 76yo M for Upper Endoscopy and Colonoscopy s/p EGD 08/2021 with MAC PMFSH Active Problems Active Problems: All Active Problems (Updated 09/16/21 @ 14:26 by Margaret Conrad, RN) Gout attack (Acute) Past Medical History Medical History Anorexia Arthritis Cough GERD (gastroesophageal reflux disease) Gout Hiatal hernia Hx of low back pain Smoker Family History Family history of problems with anesthesia: No Surgical History Surgical History (Updated 09/16/21 @ 14:24 by Margaret Conrad, RN) H/O elbow surgery Hx of esophagogastroduodenoscopy History of Problems with Anesthesia: No Social History Social History Are you a primary patient care technician instructor to a significant other at home: No Do you presently have visiting nurse or other home services: No Patient Tobacco Use Status: Current everyday Tobacco user Tobacco use type: Cigarette Cigarette Packs Per Day: 1 Cigarettes Per Day: 20.0 Years Smoked: 60+ Use of substances other than those prescribed or required for medical reasons: No Are you DNR?: No Advance Directives: No Advance Directives Information Provided: Yes Meds Allergies Allergy/AdvReac Type Severity Reaction Status Date / Time No Known Allergies Allergy Verified 09/16/21 14:26 Home Medications Medication Instructions Recorded Confirmed Last Taken Type colchicine 0.6 mg tablet 0.6 mg PO DAILY PRN Pain 08/08/21 08/08/21 Unknown History diazepam 5 mg tablet (Valium) 5 mg PO TID PRN Anxiety 08/08/21 08/08/21 Unknown History omeprazole 40 mg capsule,delayed 1 cap PO QAM 08/08/21 08/08/21 Unknown History release Exam Exam Date and Time: September 19, 2021 1006 Height,Weight and Vital Signs: Height 5 ft 8.5 in Weight 60.781 kg Pertinent Lab Results Pertinent Lab Results: Laboratory Tests 08/26/21 08/26/21 15:40 15:40 WBC 7.4 Hgb 11.8 L Hct 37.1 L Plt Count 329 Sodium 140 Potassium 4.8 Chloride 104 Carbon Dioxide 26 BUN 19 H D Creatinine 0.92 Assessment and Plan Assessment Anesthesia Assessment: Chart Reviewed Final Anesthetic Review Family History of Problems with Anesthesia: No History of Problems with Anesthesia: No Documented by User: Yemi Carrasquillo MD 09/22/21 16:56 HPI - Anesthesia Eval Consult details Narrative: 76yo M for Upper Endoscopy and Colonoscopy s/p EGD 08/2021 with MAC Smoker [facility] Past Medical History Medical History Anorexia Arthritis Cough GERD (gastroesophageal reflux disease) Gout Hiatal hernia Hx of low back pain Smoker Surgical History Surgical History (Updated 09/16/21 @ 14:24 by Margaret Conrad RN) H/O elbow surgery Hx of esophagogastroduodenoscopy Social History Social History Are you a primary patient care technician instructor to a significant other at home: No Do you presently have visiting nurse or other home services: No Patient Tobacco Use Status: Current everyday Tobacco user Tobacco use type: Cigarette Cigarette Packs Per Day: 1 Cigarettes Per Day: 20.0 Years Smoked: 60+ Use of substances other than those prescribed or required for medical reasons: No Are you DNR?: No Advance Directives: No Advance Directives Information Provided: Yes Meds Allergies Allergy/AdvReac Type Severity Reaction Status Date / Time No Known Allergies Allergy Verified 09/16/21 14:26 Home Medications Medication Instructions Recorded Confirmed Last Taken Type colchicine 0.6 mg tablet 0.6 mg PO DAILY PRN Pain 08/08/21 08/08/21 Unknown History diazepam 5 mg tablet (Valium) 5 mg PO TID PRN Anxiety 08/08/21 08/08/21 Unknown History omeprazole 40 mg capsule,delayed 1 cap PO QAM 08/08/21 08/08/21 Unknown History release Exam Airway Mallampati Class: IV TM Dist: >3cm Neck ROM: Full Loose/Missing/Broken Teeth: Yes (Poor dentition ) Heart: S1,S2 Lungs: b/l breath sounds Assessment and Plan Assessment Anesthesia Assessment: Anesthesia Plan Discussed Final Anesthetic Review NPO: Yes ASA Class: III Final Preanesthetic Review: Meds/Allgs Chart Reviewed, Consent Obtained/Reviewed and Anes Risks/Benef Reviewed Patient Risk: Intermediate Procedure Risk: Intermediate Anesthetic Plan Anesthetic Plan: MAC: Disposition: Standard PACU
[2021-09-22 12:30] VITALS: BP 175/79; PULSE 91; RESP 18; TEMP 36.4; O2SAT 98
[2021-09-22] MEDS: Lactated Ringers 1,000 ML 100 ML IVCONT (12:42)
[2021-09-22 15:15] VITALS: BP 128/53; PULSE 92; RESP 16; TEMP 36.5; O2SAT 99
[2021-09-22 15:30] VITALS: BP 122/57; PULSE 94; RESP 16; O2SAT 97
--- NOTE | 2021-09-22 15:31 | PM.OP ---
Brief Operative Note Date of Service: 09/22/21 Pre-op diagnosis: Screening, Duodenal adenomas Post-op diagnosis: other (Colon polyp, Duodenal polyps) Procedure: Colonoscopy to the cecum and TI with bx/removal of polyp, EGD with hot snare polypectomy x 5 in duodenum and placement of 3 Resolution clips. Surgeon: aMrkus Coe Anesthesia: MAC and other (Glucagon 0.5mg IV x 2 doses) Was an Orderlies Teacher used for this Procedure?: No Estimated blood loss (mL): 2.0 Pathology: other (A. Colon polyp at 40cm B. Duodenal polyps) Condition: stable Disposition: PACU
[2021-09-22 15:45] VITALS: BP 133/64; PULSE 96; RESP 16; TEMP 37.1; O2SAT 98
--- NOTE | 2021-09-23 02:55 | OP_ITS ---
SURGEON: Markus Coe MD INDICATIONS: The patient presents for evaluation of known history of duodenal tubular adenomas and colorectal cancer screening. Full consent has been obtained from him for this, including risks of bleeding and perforation. PREOPERATIVE DIAGNOSIS: History of duodenal adenomas and colorectal cancer screening. POSTOPERATIVE DIAGNOSIS: PROCEDURE PERFORMED: 1. Colonoscopy to the cecum and terminal ileum with biopsy and removal of polyp. 2. Esophagogastroduodenoscopy with hot snare polypectomy of duodenal polyps. ESTIMATED BLOOD LOSS: COMPLICATIONS: ANESTHESIA: Monitored anesthesia care and glucagon 0.5 mg IV x2 doses. ASSISTANTS: SPECIMENS: POSTOPERATIVE DIAGNOSES: History of duodenal adenomas, colorectal cancer screening, small colon polyp, diverticulosis, internal hemorrhoids, duodenal polyps, and hiatal hernia. DESCRIPTION OF PROCEDURE: The patient was placed in the left lateral decubitus position. The digital rectal exam revealed no abnormalities. The Olympus video pediatric colonoscope was entered into the rectum and advanced easily to the cecum. Once in the cecum, I did identify normal-appearing cecal pouch with appendiceal orifice and a normal-appearing ileocecal valve. The terminal ileum was cannulated and appeared normal. The scope was withdrawn back into the colon. The entire cecum and ileocecal valve appeared normal. The scope was then slowly withdrawn assessing all mucosal surfaces carefully. Preparation was excellent. At 40 cm, there was an approximately 3 or 4 mm polyp, which was removed with cold biopsy forceps completely. I did not visualize any other polyps, colitis, nor angiodysplasia. There was a mild amount of sigmoid diverticulosis. In the rectum, scope was retroflexed visualizing internal hemorrhoids, but no other pathology. The rectal mucosa appeared normal. The scope was straightened and withdrawn from the patient. He was then turned around for the upper endoscopy. The Olympus video gastroscope was passed into the posterior oropharynx and upper esophagus under direct vision. The scope was advanced to the distal esophagus. The gastroesophageal junction appeared slightly irregular at 35 cm consistent with his known history of reflux and Isaac esophagus. There was no ulceration, inflammation, nor mass. The scope entered the stomach, there was a small hiatal hernia. The scope was advanced to the pylorus and the duodenum was cannulated into the descending portion. The duodenal bulb appeared normal. In the 2nd portion of the duodenum, were several polypoid lesions that had been biopsied previously and shown to be tubular adenomas. I did inspect the remainder of the duodenum as far as the scope would go and no other polyps were visualized. The region of what I felt was the major papilla appeared normal. The scope was withdrawn back to the region of the polypoid areas just distal to the bulb. Using the hot snare, I then removed all polypoid-appearing tissue, with one area in piecemeal fashion. All pieces were recovered either by suction or by retrieving it with the retrieval net. The polypectomy sites appeared clean without any definitive residual polyp tissue and no bleeding. I did place a Resolution clip on to 3 of the polypectomy sites with good deployment and good hemostasis. The scope was then withdrawn back into the stomach. As mentioned, 1 larger piece had to be recovered with the retrieval net that I had initially placed in the stomach during the initial polypectomies. That piece was recovered with the retrieval net and brought out of the patient. He tolerated both procedures well and was returned to the recovery area in stable condition. IMPRESSION: 1. Duodenal polyps, status post hot snare polypectomy and placement of Resolution clips. 2. Hiatal hernia. 3. Small colon polyp. 4. Diverticulosis. 5. Internal hemorrhoids. PLAN: The results of the pathology will be checked. I would recommend a repeat upper endoscopy in 3 or 4 months to reassess that area and at that time we could go down with the side-viewing duodenoscope to definitively assess the papilla. He will continue omeprazole 40 mg daily. He has been advised to stay off aspirin and NSAIDs long-term. I will also send home with a 1 month prescription for Carafate to use 3 times a day before meals. He does report that his appetite has been stable and we will continue to observe him in that regard. The elevated sed rate and C-reactive protein maybe worked up further by his primary care physician as deemed necessary. This has been discussed with his daughter. MD UNIQUE Luevano/FAHAD / [id number]
== END 2021-09-22 16:04 | disposition home or self-care (01) ==
PROVIDERS: PCP Internal Medicine; Visit Provider Internal Medicine
PROC: (CPT 45380; principal; 2021-09-22 13:00)
DX: Z12.11 Encounter for screening for malignant neoplasm of colon (principal); K63.5 Polyp of colon; K57.30 Diverticulosis of large intestine without perforation or abscess without bleeding; K64.8 Other hemorrhoids; D64.9 Anemia, unspecified; Z86.018 Personal history of other benign neoplasm; D13.2 Benign neoplasm of duodenum; K21.9 Gastro-esophageal reflux disease without esophagitis; K44.9 Diaphragmatic hernia without obstruction or gangrene
CPT/HCPCS: 45380; 43251; 88305; J2250

== ENCOUNTER 2021-09-24 12:58 | Outpatient (REF) | payer MEDICARE, SELFPAY ==
[2021-09-24 13:35] LABS: MANUAL DIFF FLAG NO
[2021-09-24 13:50] LABS: Basophils Absolute Auto 0.1 X10*3/uL (0.0-0.2); Basophils Percent Auto 1.1 % (0-2); Eosinophils Absolute Auto 0.2 X10*3/uL (0.0-0.4); Eosinophils Percent Auto 2.8 % (0-4); Hematocrit 37.3 % (42.0-52.0); Hemoglobin 11.8 g/dl (14.0-18.0); Imm Gran Abs Auto 0.02 X10*3/uL (0.00-0.03); Imm Gran Pct Auto 0.3 % (0.0-0.4); Lymphocytes Absolute Auto 1.4 X10*3/uL (1.2-4.9); Lymphocytes Percent Auto 18.3 % (20-40); Mean Corpuscular HGB Conc 31.6 g/dl (31.0-36.0); Mean Corpuscular Hemoglobin 26.6 pg (27.0-33.0); Mean Corpuscular Volume 84.2 fL (80.0-98.0); Mean Platelet Volume 10.5 fL (9.4-12.4); Monocytes Absolute Auto 0.7 X10*3/uL (0.1-1.2); Monocytes Percent Auto 8.6 % (2-11); Neutrophils Absolute Auto 5.2 x10*3/uL (2.0-8.3); Neutrophils Percent Auto 68.9 % (45-73); Platelet Count 294 X10*3/uL (160-400); Red Blood Count 4.43 X10*6/uL (4.60-5.80); Red Cell Distribution Width 17.9 % (11.0-16.0); White Blood Count 7.6 X10*3/uL (4.8-10.8)
[2021-09-24 14:24] LABS: Alanine Aminotransferase 10 U/L (0-40); Albumin Level 4.2 g/dL (3.5-5.0); Alkaline Phosphatase 108 U/L (39-117); Anion Gap 12 (12-20); Aspartate Amino Transferase 16 U/L (5-37); Bilirubin Total 0.4 mg/dL (0.0-1.0); Blood Urea Nitrogen 12 mg/dL (9-16); C Reactive Protein 4.51 mg/dL (< or = 0.50); Calcium 9.4 mg/dL (8.4-10.2); Carbon Dioxide 29 mmol/L (22-29); Chloride 104 mmol/L (96-108); Estimated Glomerular Filt Rate > 60; Glucose Random 94 mg/dL (60-115); Potassium 4.6 mmol/L (3.3-5.1); Rheumatoid Factor < 15.0 IU/mL (<15.0); Sodium 140 mmol/L (135-145); Total Protein 7.6 g/dL (6.5-8.0)
[2021-09-24 14:32] LABS: Erythrocyte Sedimentation Rate 54 MM/HR (0-15)
[2021-09-26 15:33] LABS: Anti Nuclear Antibody Screen NEGATIVE (NEGATIVE)
[2021-09-30 12:01] LABS: Neutrophil Cyto Ab Screen NEGATIVE (NEGATIVE)
== END 2021-09-24 12:59 | disposition home or self-care (01) ==
LOC: HO.LAB 12:58
PROVIDERS: PCP Internal Medicine; Visit Provider Internal Medicine
DX: R63.4 Abnormal weight loss (principal); M54.9 Dorsalgia, unspecified; R07.9 Chest pain, unspecified
CPT/HCPCS: 36415; 80053; 85025; 85652; 86036; 86037; 86038; 86039; 86140; 86431

== ENCOUNTER 2022-02-25 04:00 | Inpatient (IN) | payer MEDICARE, SELFPAY ==
[2022-02-25] VITALS (8 sets, daily range): BP systolic 110–197; BP diastolic 55–94; PULSE 27–134; RESP 17–33; TEMP 36.6–37.2; O2SAT 93–98; BMI 20.5; BMI 21.4
--- NOTE | 2022-02-25 | ECG_ITS ---
Test Reason : elevatedtrop Blood Pressure : / mmHG Vent. Rate : 112 BPM Atrial Rate : 112 BPM P-R Int : 136 ms QRS Dur : 088 ms QT Int : 342 ms P-R-T Axes : 076 062 083 degrees QTc Int : 466 ms Sinus tachycardia Possible Left atrial enlargement Left ventricular hypertrophy with repolarization abnormality ( Sokolow-Davidson ) Abnormal ECG When compared with ECG of 25-FEB-2022 04:20, T wave inversion more evident in Lateral leads Referred By: Laron Villela Electronically Signed By:ABEL THOMAS MD
--- NOTE | 2022-02-25 | ECG_ITS ---
Test Reason : sob Blood Pressure : / mmHG Vent. Rate : 118 BPM Atrial Rate : 118 BPM P-R Int : 138 ms QRS Dur : 088 ms QT Int : 314 ms P-R-T Axes : 065 053 089 degrees QTc Int : 440 ms Sinus tachycardia Possible Left atrial enlargement Left ventricular hypertrophy ( Sokolow-Davidson , Romhilt-Evans ) ST depression, consider subendocardial injury Nonspecific T wave abnormality Abnormal ECG No previous ECGs available Referred By: Zainab Kearns Electronically Signed By:ABEL THOMAS MD
--- NOTE | ~2022-02-25 | XR_ITS ---
EXAMINATION: XR CHEST CLINICAL INFORMATION: Pneumonia vs. CHF. Pain. COMPARISON: CT chest dated 04/03/2021 TECHNIQUE: Frontal view of the chest was obtained. FINDINGS: Cardiac silhouette is within normal limits in size. Increased interstitial opacities in both lungs with a perihilar and bibasilar predominance. No dense airspace consolidation. No pneumothorax or pleural effusion. Calcific atherosclerosis in the thoracic aorta. No acute osseous abnormalities. XR/XR chest 1V IMPRESSION: Interstitial opacities in both lungs as can be seen with interstitial pulmonary edema. Viral or atypical pneumonia or on the differential. No dense airspace consolidation.
--- NOTE | 2022-02-25 04:19 | ED.SOB ---
HPI - SOB/Dyspnea General Chief Complaint: Dyspnea Stated Complaint: trouble breathing Time Seen by Provider: 02/25/22 04:14 Source: patient Mode of arrival: ambulatory Limitations: no limitations History of Present Illness HPI Narrative: Patient comes to the emergency room complaining of shortness of breath for the last 8 hours. Patient states that he has been coughing quite a bit lately, no fever or chills, no chest pain no abdominal pain. Patient states that he has no history of asthma or COPD. Patient has been immunized for COVID, patient states that he never gets the flu shot because every time that he gets immunize, he gets influenza. Related Data Home Medications Medication Instructions Recorded Confirmed colchicine 0.6 mg tablet 0.6 mg PO DAILY PRN Pain 08/08/21 08/08/21 diazepam 5 mg tablet (Valium) 5 mg PO TID PRN Anxiety 08/08/21 08/08/21 omeprazole 40 mg capsule,delayed 1 cap PO QAM 08/08/21 08/08/21 release Allergies Allergy/AdvReac Type Severity Reaction Status Date / Time No Known Allergies Allergy Verified 09/16/21 14:26 Review of Systems Review of Systems: Constitutional : No Weight loss, No Fever, No Chills, No Night Sweats, No Fatigue, No Malaise ENT/Mouth : No Hearing loss, No Ear Pain, No Nasal Congestion, No Sinus Pain, No Hoarseness, No sore throat, No Rhinorrhea, No Swallowing Difficulty Eyes: No Eye Pain, No Swelling, No Redness, No Foreign Body, No Discharge, No Vision Changes Cardiovascular : No Chest Pain, complaining of palpitations Respiratory : Complaining of cough, no wheezing, complaining of shortness of breath for 8 hours Gastrointestinal : No Nausea, No Vomiting, No Diarrhea, No Constipation, No abdominal Pain, No Hematochezia, No Melena Genitourinary : no irregular bleeding, No Dysuria, No Urinary Frequency, No Hematuria, No Urinary Incontinence, No Urgency, No Flank Pain, No Urinary Flow Changes, No Hesitancy Musculoskeletal : No joint pain, No Myalgias, No Joint Swelling Skin : No Skin Lesions, No rash Neuro : No Weakness, No Numbness, No Paresthesias, No Loss of Consciousness, No Dizziness, No Headache Psych : No Anxiety/Panic, No Depression, No SI/HI/AH/VH, No Social Issues, Heme/Lymph: No Bruising, No Bleeding,No Lymphadenopathy Endocrine : No Polyuria, No Polydipsia, No Temperature Intolerance [facility] Past Medical History Medical History Anorexia Arthritis Cough GERD (gastroesophageal reflux disease) Gout Hiatal hernia Hx of low back pain Smoker Surgical History H/O elbow surgery Hx of esophagogastroduodenoscopy Social History Social History Are you a primary home care assistant to a significant other at home: No Do you presently have visiting nurse or other home services: No Patient Tobacco Use Status: Current everyday Tobacco user Tobacco use type: Cigarette Cigarette Packs Per Day: 1 Cigarettes Per Day: 20.0 Years Smoked: 60+ Advance Directives: Yes Advance Directives on File: Yes Advance Directives Date on File: 08/14/21 Physical Exam Vital Signs: Vital Signs: Last Vital Signs Temp 97.9 F 02/25/22 05:48 Pulse 114 H 02/25/22 05:50 Resp 29 H 02/25/22 05:48 BP 158/82 H 02/25/22 05:48 Pulse Ox 97 02/25/22 05:48 O2 Del Method 02/25/22 05:48 O2 Flow Rate 3 02/25/22 05:48 BMI result Body Mass Index 20.5 Const: Other: Appearance: Alert. Oriented X3. No acute distress. Eyes: Pupils equal, round and reactive to light. ENT: Pharynx normal. Neck: Normal inspection. Neck supple. No lymph nodes noted. No crepitus CVS: Normal heart rate and rhythm. Pulses normal. Normal S1 and S2 Respiratory: No respiratory distress. Breath sounds normal. No Wheezing. No rales tachypneic, respiratory rate in the low 20s Abdomen: Soft and nontender. No rigidity. No distention. Skin: Skin warm and dry. Normal skin color. Normal skin turgor. Extremities: No lower extremity edema. No Lacerations. No Rash Neuro: Oriented X 3. No motor deficit. No sensory deficit. Moving all extremities. No slurred speech. CN 2 through 12 grossly intact Psych: calm, cooperative, normal affect Course Course Course Narrative: Of patient's labs and imaging pending. Patient saturating 90% on room air, patient on 2 L nasal cannula. 05:27, patient's labs have returned, patient's white blood cell count is 18, lactic acid is 2.3. Chest x-ray is pending. Patient's BNP is elevated at 1046, troponin 508 Patient has been cover with antibiotic, Zosyn, also given Lasix. Patient's blood pressure is on the higher side, above 190. COVID test negative. Patient's troponin is 508, BNP 1046. Patient given Lasix and Zosyn. I discussed the patient with Dr. Caldera, this is likely secondary to pulmonary edema. The hospitalist team will follow up with the 2nd troponin. At this time, patient is not having any chest pain. Patient's lactic acid 2.3, no hypotension. 30 milliliters/kilogram fluid bolus not indicated at this time Medications Administered Discontinued Medications Generic Name Dose Route Start Last Admin Trade Name Freq PRN Reason Stop Dose Admin Furosemide 40 mg 02/25/22 05:26 02/25/22 05:44 Furosemide 40 Mg/4 Ml Vial IVPUSH 02/25/22 05:27 40 mg STAT STA Administration Protocol Piperacillin Sod/Tazobactam 50 mls @ 100 mls/hr 02/25/22 05:26 02/25/22 05:44 Sod 3.375 gm/ Sodium Chloride IV 02/25/22 05:55 100 mls/hr ONCE ONE Administration MDM - SOB/Dyspnea Lab Data Result diagrams: 02/25/22 04:30 02/25/22 04:30 Labs: Lab Results 02/25/22 02/25/22 02/25/22 Range/Units 04:30 04:30 04:30 WBC 18.0 H (4.8-10.8) X10*3/uL RBC 4.99 (4.60-5.80) X10*6/uL Hgb 14.1 (14.0-18.0) g/dl Hct 44.3 (42.0-52.0) % MCV 88.8 (80.0-98.0) fL MCH 28.3 (27.0-33.0) pg MCHC 31.8 (31.0-36.0) g/dl RDW 15.3 (11.0-16.0) % Plt Count 315 (160-400) X10*3/uL MPV 11.2 (9.4-12.4) fL Immature Gran % (Auto) 0.4 (0.0-0.4) % Neut % (Auto) 89.8 H (45-73) % Lymph % (Auto) 3.3 L (20-40) % Edmunds % (Auto) 6.2 (2-11) % Eos % (Auto) 0.0 (0-4) % Baso % (Auto) 0.3 (0-2) % Lymph # (Auto) 0.6 L (1.2-4.9) X10*3/uL Edmunds # (Auto) 1.1 (0.1-1.2) X10*3/uL Eos # (Auto) 0.0 (0.0-0.4) X10*3/uL Baso # (Auto) 0.1 (0.0-0.2) X10*3/uL Abs Immat Gran (auto) 0.07 H (0.00-0.03) X10*3/uL Absolute Neuts (auto) 16.2 H (2.0-8.3) x10*3/uL Absolute Nucleated RBC 0.000 (0.0-0.012) X10*3/uL Nucleated RBC % (auto) 0.0 (0.0-0.2) /100WBC PT (10.0-13.1) SEC INR (0.9-1.1) VBG pH (7.32-7.43) VBG pCO2 mmHg VBG pO2 mmHg VBG HCO3 (22-26) mmol/L VBG O2 Saturation % VBG Base Excess mmol/L Sodium 142 (135-145) mmol/L Potassium 4.9 (3.3-5.1) mmol/L Chloride 108 (96-108) mmol/L Carbon Dioxide 20 L (22-29) mmol/L Anion Gap 19 (12-20) BUN 27 H (9-16) mg/dL Creatinine 1.02 (0.5-1.4) mg/dL Estim Creat Clear Calc 52.5 Estimated GFR > 60 Random Glucose 119 H (60-115) mg/dL Lactic Acid (0.5-2.0) mmol/L Calcium 9.6 (8.4-10.2) mg/dL Total Bilirubin 0.4 (0.0-1.0) mg/dL Direct Bilirubin < 0.2 (0.0-0.5) mg/dL AST 37 (5-37) U/L ALT 16 (0-40) U/L Alkaline Phosphatase 123 H (39-117) U/L Troponin I High Sens 508.4 H* (<3.5-35.0) ng/L B-Natriuretic Peptide (<100) pg/mL Total Protein 7.9 (6.5-8.0) g/dL Albumin 4.3 (3.5-5.0) g/dL Influenza Type A (PCR) (Negative) Influenza Type B (PCR) (Negative) RSV RNA Qual (PCR) (Negative) SARS-CoV-2 RNA (RT-PCR) (Negative) 02/25/22 02/25/22 02/25/22 Range/Units 04:30 04:30 04:30 WBC (4.8-10.8) X10*3/uL RBC (4.60-5.80) X10*6/uL Hgb (14.0-18.0) g/dl Hct (42.0-52.0) % MCV (80.0-98.0) fL MCH (27.0-33.0) pg MCHC (31.0-36.0) g/dl RDW (11.0-16.0) % Plt Count (160-400) X10*3/uL MPV (9.4-12.4) fL Immature Gran % (Auto) (0.0-0.4) % Neut % (Auto) (45-73) % Lymph % (Auto) (20-40) % Edmunds % (Auto) (2-11) % Eos % (Auto) (0-4) % Baso % (Auto) (0-2) % Lymph # (Auto) (1.2-4.9) X10*3/uL Ed[place]ds # (Auto) (0.1-1.2) X10*3/uL Eos # (Auto) (0.0-0.4) X10*3/uL Baso # (Auto) (0.0-0.2) X10*3/uL Abs Immat Gran (auto) (0.00-0.03) X10*3/uL Absolute Neuts (auto) (2.0-8.3) x10*3/uL Absolute Nucleated RBC (0.0-0.012) X10*3/uL Nucleated RBC % (auto) (0.0-0.2) /100WBC PT 12.8 (10.0-13.1) SEC INR 1.1 (0.9-1.1) VBG pH (7.32-7.43) VBG pCO2 mmHg VBG pO2 mmHg VBG HCO3 (22-26) mmol/L VBG O2 Saturation % VBG Base Excess mmol/L Sodium (135-145) mmol/L Potassium (3.3-5.1) mmol/L Chloride (96-108) mmol/L Carbon Dioxide (22-29) mmol/L Anion Gap (12-20) BUN (9-16) mg/dL Creatinine (0.5-1.4) mg/dL Estim Creat Clear Calc Estimated GFR Random Glucose (60-115) mg/dL Lactic Acid 2.3 H* (0.5-2.0) mmol/L Calcium (8.4-10.2) mg/dL Total Bilirubin (0.0-1.0) mg/dL Direct Bilirubin (0.0-0.5) mg/dL AST (5-37) U/L ALT (0-40) U/L Alkaline Phosphatase (39-117) U/L Troponin I High Sens (<3.5-35.0) ng/L B-Natriuretic Peptide 1046 H (<100) pg/mL Total Protein (6.5-8.0) g/dL Albumin (3.5-5.0) g/dL Influenza Type A (PCR) (Negative) Influenza Type B (PCR) (Negative) RSV RNA Qual (PCR) (Negative) SARS-CoV-2 RNA (RT-PCR) (Negative) 02/25/22 02/25/22 Range/Units 04:30 04:34 WBC (4.8-10.8) X10*3/uL RBC (4.60-5.80) X10*6/uL Hgb (14.0-18.0) g/dl Hct (42.0-52.0) % MCV (80.0-98.0) fL MCH (27.0-33.0) pg MCHC (31.0-36.0) g/dl RDW (11.0-16.0) % Plt Count (160-400) X10*3/uL MPV (9.4-12.4) fL Immature Gran % (Auto) (0.0-0.4) % Neut % (Auto) (45-73) % Lymph % (Auto) (20-40) % Edmunds % (Auto) (2-11) % Eos % (Auto) (0-4) % Baso % (Auto) (0-2) % Lymph # (Auto) (1.2-4.9) X10*3/uL Edmunds # (Auto) (0.1-1.2) X10*3/uL Eos # (Auto) (0.0-0.4) X10*3/uL Baso # (Auto) (0.0-0.2) X10*3/uL Abs Immat Gran (auto) (0.00-0.03) X10*3/uL Absolute Neuts (auto) (2.0-8.3) x10*3/uL Absolute Nucleated RBC (0.0-0.012) X10*3/uL Nucleated RBC % (auto) (0.0-0.2) /100WBC PT (10.0-13.1) SEC INR (0.9-1.1) VBG pH 7.34 (7.32-7.43) VBG pCO2 35 mmHg VBG pO2 39 mmHg VBG HCO3 19 L (22-26) mmol/L VBG O2 Saturation 59.0 % VBG Base Excess -5.2 mmol/L Sodium (135-145) mmol/L Potassium (3.3-5.1) mmol/L Chloride (96-108) mmol/L Carbon Dioxide (22-29) mmol/L Anion Gap (12-20) BUN (9-16) mg/dL Creatinine (0.5-1.4) mg/dL Estim Creat Clear Calc Estimated GFR Random Glucose (60-115) mg/dL Lactic Acid (0.5-2.0) mmol/L Calcium (8.4-10.2) mg/dL Total Bilirubin (0.0-1.0) mg/dL Direct Bilirubin (0.0-0.5) mg/dL AST (5-37) U/L ALT (0-40) U/L Alkaline Phosphatase (39-117) U/L Troponin I High Sens (<3.5-35.0) ng/L B-Natriuretic Peptide (<100) pg/mL Total Protein (6.5-8.0) g/dL Albumin (3.5-5.0) g/dL Influenza Type A (PCR) NEGATIVE (Negative) Influenza Type B (PCR) NEGATIVE (Negative) RSV RNA Qual (PCR) NEGATIVE (Negative) SARS-CoV-2 RNA (RT-PCR) NEGATIVE (Negative) Imaging Data Chest x-ray: Radiologist's impression: FINDINGS: Cardiac silhouette is within normal limits in size. Increased interstitial opacities in both lungs with a perihilar and bibasilar predominance. No dense airspace consolidation. No pneumothorax or pleural effusion. Calcific atherosclerosis in the thoracic aorta. No acute osseous abnormalities. XR/XR chest 1V IMPRESSION: Interstitial opacities in both lungs as can be seen with interstitial pulmonary edema. Viral or atypical pneumonia or on the differential. No dense airspace consolidation. Critical Care Time Critical Care Time Critical Care Time: Yes Total Critical Care Time: 60 Attestation: I have personally provided critical care time. Time includes review of lab data, radiology results, discussion with consultants, and monitoring for potential decompensation. Intervention performed as documented. Discharge Plan Discharge Clinical Impression: Congestive heart failure, Pneumonia, Elevated troponin Patient Disposition: Admitted As Inpatient Prescriptions: No Action omeprazole 40 mg capsule,delayed release(DR/EC) 1 cap PO QAM colchicine 0.6 mg tablet 0.6 mg PO DAILY PRN (Reason: Pain) Label Comments: gout diazepam [Valium] 5 mg tablet 5 mg PO TID PRN (Reason: Anxiety)
[2022-02-25 04:39] LABS: Basophils Absolute Auto 0.1 X10*3/uL (0.0-0.2); Basophils Percent Auto 0.3 % (0-2); Hematocrit 44.3 % (42.0-52.0); Hemoglobin 14.1 g/dl (14.0-18.0); Imm Gran Abs Auto 0.07 X10*3/uL (0.00-0.03); Imm Gran Pct Auto 0.4 % (0.0-0.4); Lymphocytes Absolute Auto 0.6 X10*3/uL (1.2-4.9); Lymphocytes Percent Auto 3.3 % (20-40); MANUAL DIFF FLAG NO; Mean Corpuscular HGB Conc 31.8 g/dl (31.0-36.0); Mean Corpuscular Hemoglobin 28.3 pg (27.0-33.0); Mean Corpuscular Volume 88.8 fL (80.0-98.0); Mean Platelet Volume 11.2 fL (9.4-12.4); Monocytes Absolute Auto 1.1 X10*3/uL (0.1-1.2); Monocytes Percent Auto 6.2 % (2-11); Neutrophils Absolute Auto 16.2 x10*3/uL (2.0-8.3); Neutrophils Percent Auto 89.8 % (45-73); Platelet Count 315 X10*3/uL (160-400); Red Blood Count 4.99 X10*6/uL (4.60-5.80); Red Cell Distribution Width 15.3 % (11.0-16.0)
[2022-02-25 04:40] LABS: VBG Base Excess -5.2 mmol/L; VBG HCO3 19 mmol/L (22-26); VBG pCO2 35 mmHg; VBG pH 7.34 (7.32-7.43); VBG pO2 39 mmHg
[2022-02-25 04:44] LABS: Venous Blood Gas Refer to POC result
[2022-02-25 04:44] LABS: INTERNATIONAL NORM RATIO 1.1 (0.9-1.1); Prothrombin Time 12.8 SEC (10.0-13.1)
[2022-02-25 05:00] LABS: Lactic Acid 2.3 mmol/L (0.5-2.0)
[2022-02-25 05:03] LABS: Alanine Aminotransferase 16 U/L (0-40); Albumin Level 4.3 g/dL (3.5-5.0); Alkaline Phosphatase 123 U/L (39-117); Anion Gap 19 (12-20); Aspartate Amino Transferase 37 U/L (5-37); Bilirubin Direct < 0.2 mg/dL (0.0-0.5); Bilirubin Total 0.4 mg/dL (0.0-1.0); Blood Urea Nitrogen 27 mg/dL (9-16); Calcium 9.6 mg/dL (8.4-10.2); Carbon Dioxide 20 mmol/L (22-29); Chloride 108 mmol/L (96-108); Creatinine Clr Calc Pharmacy 52.5; Estimated Glomerular Filt Rate > 60; Glucose Random 119 mg/dL (60-115); Potassium 4.9 mmol/L (3.3-5.1); Sodium 142 mmol/L (135-145); Total Protein 7.9 g/dL (6.5-8.0)
[2022-02-25 05:06] LABS: B Type Natriuretic Peptide 1046 pg/mL (<100)
[2022-02-25 05:09] LABS: Troponin-I High Sensitivity 508.4 ng/L (<3.5-35.0)
[2022-02-25 05:16] LABS: Influenza A PCR NEGATIVE (Negative); Influenza B PCR NEGATIVE (Negative); Resp Syncy Virus RNA Qual PCR NEGATIVE (Negative); SARS COV2 PCR INHOUSE NEGATIVE (Negative)
[2022-02-25] MEDS: Furosemide 40 MG/4 ML VIAL IVPUSH ×2 (05:44→08:47)
[2022-02-25] MEDS: Piperacillin Sodium/Tazobactam 3.375 GM in 0.9 % Sodium Chloride 50 ML IV (05:44)
[2022-02-25 06:37] LABS: Reflex Lactate? Lactic Acid Added
[2022-02-25] MEDS: Enoxaparin Sodium 40 MG/0.4 ML SYRINGE SUBCUT (06:59)
[2022-02-25] MEDS: 0.9 % Sodium Chloride Flush 3 ML SYRINGE IVFLUSH (07:00)
--- NOTE | 2022-02-25 07:00 | CA_ITS ---
Transthoracic Echocardiogram Patient (Last, First, Middle): Joe Guzman, Gender: Male Date of : 1945 Age: 76 Procedure Date: 02/25/2022 Procedure Type: Transthoracic Echocardiogram Location: ER Height: 172.72 cm Weight: 61.24 kg BSA: 1.73 m2 Heart Rate: bpm BP: 158 / 82 mmHg Burn Nurse: Referring MD: Travon Feldman MD Pct: Philippe Knutson MD Symptoms: acute pulmonary edema Study Quality: Adequate ECG Rhythm: Sinus Conclusions: - 1. Mildly dilated left ventricle with severely reduced LV ejection fraction 20 you 25% with regionality in LAD territory with impaired relaxation filling pattern 2. Mild mitral regurgitation 3. Normal RV systolic pressure 4. No gross pericardial effusion Findings Left Ventricle Mildly increased left ventricular cavity size. There is normal left ventricular wall thickness. The left ventricular systolic function is severely decreased. The visually estimated ejection fraction is between 20 25%. Spectral Doppler is indicative of an impaired relaxation filling pattern. E/E prime ratio is between 8 and 15 consistent with indeterminate filling pressures. Wall Motion Rest Echo Findings The inferoseptal wall, inferior wall, entire lateral wall, the basal anterior, apical septum, and basal anteroseptal segments are hypokinetic. The apex, apical anterior, mid anterior, and mid anteroseptal segments are akinetic. Right Ventricle Normal right ventricular cavity size and systolic function. Atria Both atria are normal in size. There is no evidence of interatrial shunt. Aortic Valve Normal aortic valve structure and function. There is no aortic valve stenosis. There is no aortic valve regurgitation. Mitral Valve There is mild anterior and posterior mitral leaflet thickening. There is mild mitral valve regurgitation. There is no mitral valve stenosis. Pulmonic Valve The pulmonic valve was not well visualized. Tricuspid Valve Likely normal tricuspid valve structure and function. There is mild tricuspid valve regurgitation. The right ventricular systolic pressure is normal. The right ventricular systolic pressure is 30 mmHg. Normal right atrial pressure. There is no evidence of pulmonary hypertension. Great Vessels All visible segments of the aorta are normal in size. The pulmonary artery was not well visualized. Venous The inferior vena cava is normal in size and collapses greater than 50% with inspiration. Pericardium/Pleural There is no evidence of pericardial effusion. There is a bilateral pleural effusion. Prior Study Comparison No change compared to prior study. Measurements 2D Linear Measurements IVSd: 1.05 0.6-0.9/0.6-1.0 cm LVIDd: 5.87 3.9-5.3/4.2-5.9 cm LVIDd Index: 3.39 2.4-3.2/2.2-3.1 cm/m2 LVIDs: 5.33 2.0-3.6 cm LVPWd: 1.09 0.7-1.1 cm Ao Root: 3.70 2.1-3.5 cm LA Diam: 2.70 2.7-3.8/3.0-4.0 cm LAIDs Index: 1.56 1.5-2.3 cm/m2 LV Mass: 324.13 67-162/88-224 g LV Mass Index: 187.36 43-95/49-115 g/m2 LVOT Diam: 2.30 3.0+(-)1.3 cm 2D Systolic Function EF 4C: 19.70 >55% EF 2C: 24.70 >55% EF BiP: 22.00 >55% Mitral Valve MV Pk E: 0.65 MV PK A: 0.49 MV Decel Time: 102.00 E/A: 1.30 E'Lateral: 7.51 E'Medial: 4.68 E/E' Med: 13.90 E/E' Lat: 8.70 PHT: 30.00 MVA PHT: 7.33 Decel [place]: 6.40 Aortic Valve AoV Pk Keys[place]wn: 1.19 AoV Mn [place]: 0.80 AoV VTI: 0.22 AoV Pk Grad: 6.00 Aov Mn Grad: 3.00 RAJENDRA Cont.VTI: 2.22 AI Pk [place]: 4.31 AI [place]: 8.22 LVOT LVOT Pk [place]: 0.79 LVOT Mn [place]: 0.50 LVOT VTI: 0.12 LVOT Pk Grad: 2.00 LVOT Mn Grad: 1.00 LVOT Diam: 2.30 LVOT Area: 4.15 Diastolic Function MV Pk E: 0.65 MV Pk A: 0.49 E/A: 1.30 E'Medial: 4.68 E/E' Med: 13.90 E' Laterial: 7.51 E/E' Lat: 8.70 Right Ventricle TAPSE (mm): 25.00 TVS' Keyshawn: 15.00 Tricuspid Valve TR Pk [place]wn: 2.60 TR Pk Grad: 27.00 RA Press: 3.00 RVSP: 30.00 Great Vessels Aorta Ao Root-2D: 3.70 2.0-3.7 cm Ao Asc: 4.10 2.1-3.4 cm Pulmonary Valve PV Pk Keyshawn: 0.77 Peak PV Grad: 2.00 Updated in Other Vendor System with Status of Final Philippe Knutson MD electronically signed on 02/25/2022 2:57:45 PM with status of Final
--- NOTE | 2022-02-25 07:03 | PM.IMHP ---
History of Present Illness Date of Service: 02/25/22 Chief Complaint: SOB 76-year-old with past medical history of for gout , lifelong smoker, with no other past medical history presents to the hospital with complaints of sudden onset shortness of breath. Patient reports that he was sleeping when he woke up with sudden onset shortness of breath. He had orthopnea and PND, no lower extremity edema, he denies any chest pain, he reports no previous similar episode. Denies any abdominal pain nausea or vomiting, no diarrhea constipation, no urinary symptoms and no lower extremity edema. Patient reports that he does not usually have a regular follow-up with physician because he never needed to. On arrival to the ED, patient has a heart rate of 134, respiratory rate of 24, blood pressure of 197/94, satting 93% on room air Labs are significant for WBC count of 18, pH of 7.34, lactic acid of 2.3, troponin of 508, BNP of 1046, respiratory panel was negative for COVID, influenza, RSV Chest x-ray shows interstitial opacities in both lungs seen with interstitial pulmonary edema Review of Systems Review of Systems: Yes all other systems are reviewed and are negative [facility] Medical History Anorexia Arthritis Cough GERD (gastroesophageal reflux disease) Gout Hiatal hernia Hx of low back pain Smoker Family History Other No family history of coronary artery disease Surgical History H/O elbow surgery Hx of esophagogastroduodenoscopy Social History Are you a primary child care center assistant director to a significant other at home: No Do you presently have visiting nurse or other home services: No Patient Tobacco Use Status: Current everyday Tobacco user Tobacco use type: Cigarette Cigarette Packs Per Day: 1 Cigarettes Per Day: 20.0 Years Smoked: 60+ Advance Directives: Yes Advance Directives on File: Yes Advance Directives Date on File: 08/14/21 Meds Allergies Allergy/AdvReac Type Severity Reaction Status Date / Time No Known Allergies Allergy Verified 09/16/21 14:26 Active Medications: Current Medications Acetaminophen (Acetaminophen 325 Mg Tablet) 650 mg PO Q6H PRN PRN Reason: Pain, Mild (Pain Scale 1-3) Docusate Sodium (Docusate Sodium 100 Mg Capsule) 100 mg PO DAILY PRN PRN Reason: Constipation Enoxaparin Sodium (Enoxaparin Sodium 40 Mg/0.4 Ml Syringe) 40 mg SUBCUT Q24H [facility] Last Admin: 02/25/22 06:59 Dose: 40 mg Furosemide (Furosemide 40 Mg/4 Ml Vial) 40 mg IVPUSH BID@0900,1800 [facility]; Protocol Ondansetron HCl (Ondansetron Hcl 4 Mg/2 Ml Vial) 4 mg IVPUSH Q8H PRN PRN Reason: Nausea and Vomiting Pharmacy Consult (Consult Rx Perform Med Rec) 1 each MISCELLANE ONCE PRN PRN Reason: Consult order Sodium Chloride (0.9 % Sodium Chloride Flush 3 Ml Syringe) 3 ml IVFLUSH QSHIFT [facility] Last Admin: 02/25/22 07:00 Dose: 3 ml Home Medications Medication Instructions Recorded Confirmed Last Taken Type colchicine 0.6 mg tablet 0.6 mg PO DAILY PRN Pain 08/08/21 08/08/21 Unknown History diazepam 5 mg tablet (Valium) 5 mg PO TID PRN Anxiety 08/08/21 08/08/21 Unknown History omeprazole 40 mg capsule,delayed 1 cap PO QAM 08/08/21 08/08/21 Unknown History release Physical Exam Vital Signs and Narrative: Vital Signs: Last Vital Signs Temp 98.2 F 02/25/22 06:24 Pulse 105 H 02/25/22 06:24 Resp 33 H 02/25/22 06:24 BP 158/82 H 02/25/22 06:24 Pulse Ox 97 02/25/22 06:24 O2 Del Method 02/25/22 06:24 O2 Flow Rate 3 02/25/22 06:24 BMI result Body Mass Index 20.5 Const: General: cooperative and no acute distress Orientation/consciousness: patient oriented x3 Eyes: General: appearance normal, both eyes and all related structures Pupils: Equal, round and reactive pupils present Resp: Other: Lungs show crackles bilateral Effort & Inspection: normal respiratory effort Cardio: Rate: regular rate Rhythm: regular rhythm GI: Palpation (GI): Soft to palpation Auscultation: normal bowel sounds Skin: General skin exam: no rashes or lesions noted Neuro: General: patient oriented x3 Cranial nerves: Yes Equal, round and reactive pupils present Cognition (Neuro): normal cognition Extrem: General: Yes normal to inspection and Yes no pedal edema Results Labs CBC and Chem 7: 02/25/22 04:30 02/25/22 04:30 Labs: Laboratory Results - last 24 hr 02/25/22 02/25/22 02/25/22 04:30 04:30 04:30 MCV 88.8 MCH 28.3 MCHC 31.8 RDW 15.3 Plt Count 315 MPV 11.2 Immature Gran % (Auto) 0.4 Neut % (Auto) 89.8 H Lymph % (Auto) 3.3 L [place] % (Auto) 6.2 Eos % (Auto) 0.0 Baso % (Auto) 0.3 Lymph # (Auto) 0.6 L [place] # (Auto) 1.1 Eos # (Auto) 0.0 Baso # (Auto) 0.1 Abs Immat Gran (auto) 0.07 H Absolute Neuts (auto) 16.2 H Absolute Nucleated RBC 0.000 Nucleated RBC % (auto) 0.0 PT INR VBG pH VBG pCO2 VBG pO2 VBG HCO3 VBG O2 Saturation VBG Base Excess Anion Gap 19 Estim Creat Clear Calc 52.5 Estimated GFR > 60 Random Glucose 119 H Lactic Acid Calcium 9.6 Total Bilirubin 0.4 Direct Bilirubin < 0.2 AST 37 ALT 16 Alkaline Phosphatase 123 H Troponin I High Sens 508.4 H* B-Natriuretic Peptide Total Protein 7.9 Albumin 4.3 Influenza Type A (PCR) Influenza Type B (PCR) RSV RNA Qual (PCR) SARS-CoV-2 RNA (RT-PCR) 02/25/22 02/25/22 02/25/22 04:30 04:30 04:30 MCV MCH MCHC RDW Plt Count MPV Immature Gran % (Auto) Neut % (Auto) Lymph % (Auto) [place] % (Auto) Eos % (Auto) Baso % (Auto) Lymph # (Auto) [place] # (Auto) Eos # (Auto) Baso # (Auto) Abs Immat Gran (auto) Absolute Neuts (auto) Absolute Nucleated RBC Nucleated RBC % (auto) PT 12.8 INR 1.1 VBG pH VBG pCO2 VBG pO2 VBG HCO3 VBG O2 Saturation VBG Base Excess Anion Gap Estim Creat Clear Calc Estimated GFR Random Glucose Lactic Acid 2.3 H* Calcium Total Bilirubin Direct Bilirubin AST ALT Alkaline Phosphatase Troponin I High Sens B-Natriuretic Peptide 1046 H Total Protein Albumin Influenza Type A (PCR) Influenza Type B (PCR) RSV RNA Qual (PCR) SARS-CoV-2 RNA (RT-PCR) 02/25/22 02/25/22 04:30 04:34 MCV MCH MCHC RDW Plt Count MPV Immature Gran % (Auto) Neut % (Auto) Lymph % (Auto) [place] % (Auto) Eos % (Auto) Baso % (Auto) Lymph # (Auto) [place] # (Auto) Eos # (Auto) Baso # (Auto) Abs Immat Gran (auto) Absolute Neuts (auto) Absolute Nucleated RBC Nucleated RBC % (auto) PT INR VBG pH 7.34 VBG pCO2 35 VBG pO2 39 VBG HCO3 19 L VBG O2 Saturation 59.0 VBG Base Excess -5.2 Anion Gap Estim Creat Clear Calc Estimated GFR Random Glucose Lactic Acid Calcium Total Bilirubin Direct Bilirubin AST ALT Alkaline Phosphatase Troponin I High Sens B-Natriuretic Peptide Total Protein Albumin Influenza Type A (PCR) NEGATIVE Influenza Type B (PCR) NEGATIVE RSV RNA Qual (PCR) NEGATIVE SARS-CoV-2 RNA (RT-PCR) NEGATIVE Imaging Radiologist's Impressions: Impressions Chest X-Ray 02/25/22 05:40 IMPRESSION: Interstitial opacities in both lungs as can be seen with interstitial pulmonary edema. Viral or atypical pneumonia or on the differential. No dense airspace consolidation. Assessment and Plan (1) Congestive heart failure: Status: Acute (2) Hypertensive emergency: Status: Acute (3) Elevated troponin: Status: Acute (4) Tobacco use disorder: Status: Acute Plan 76-year-old male presents to the hospital with acute respiratory distress found to have acute CHF # acute CHF exacerbation - unspecified - possibly related to flash pulmonary edema as he was new onset, with elevated BP on arrival - no history of CHF in the past - will treat with IV Lasix, cardiology consult, echocardiogram, low-sodium diet, strict I&O, daily weight # hypertensive emergency - presented with a blood pressure of 190 systolic -improved spontaneously with a blood pressure now 158/82 - will monitor at this time - consider starting antihypertensive prior to discharge - patient denies history of hypertension # elevated troponin - likely type 2 in the setting of elevated blood pressure and CHF - will trend x2 - cardiology consulted # tobacco use disorder - smokes 1 pack per day - at this time will hold off starting on nicotine replacement therapy, consider on discharge # gout - no flare DVT prophylaxis: Lovenox Given patient's for need for IV Lasix patient will require minimum to inpatient hospital stay for further management and monitoring Quality Stroke Does the patient have a stroke diagnosis?: No VTE Prior VTE?: No VTE Risk Level:: Medical - moderate - high VTE Device Contraindication: Treatment Not Indicated VTE Drug Contraindication: N/A - Med Ordered
[2022-02-25 07:28] LABS: ~Lactic Acid-LAB USE ONLY 1.6 mmol/L (0.5-2.0)
--- NOTE | 2022-02-25 07:47 | PHA.MEDREC ---
Pharmacy Consult ? Medication Reconciliation Pharmacy has completed the medication reconciliation. Patient reports no medications at home. Gabriella Lu, AuraD
[2022-02-25 07:54] LABS: Troponin-I High Sensitivity 1542.2 ng/L (<3.5-35.0)
[2022-02-25 08:11] LABS: Appearance Urine Clear; Color Urine Yellow; Glucose Urine UA Negative (Negative); Leukocyte Esterase Urine Negative (Negative); Nitrite Urine Negative (Negative); UMIC TRIGGER UACC YES; Urine Blood Trace (Negative); Urine Ketones Negative (Negative); Urine Protein Negative (Neg-Trace)
[2022-02-25 08:13] LABS: Bacteria Urine None Seen (None Seen); Hyaline Casts Urine 0-2 /LPF (0-2); RBC Urine 0-2 /HPF (0-2); Squamous Epithelial Cell Urine 0-2 /HPF (0-2); WBC Urine 0-5 /HPF (0-5)
[2022-02-25 08:30] LABS: Cholesterol 234 mg/dL; HDL Cholesterol 52 mg/dL; LDL Cholesterol Calculated 166 mg/dl; Triglycerides 83 mg/dL
[2022-02-25 09:06] LABS: Procalcitonin 0.79 ng/mL
--- NOTE | 2022-02-25 09:06 | PM.CNCAR ---
History of Present Illness History of Present Illness Date of Service: 02/25/22 Requesting physician: Travon Feldman Consult reason: other (Acute pulmonary edema, acute coronary syndrome) Chief complaint: acute CHF exacerbation Narrative: I was consulted to see Joe in cardiology consultation today for acute pulmonary edema. He is a 76-year-old male with prior history of back issues came to the hospital with sudden-onset shortness of breath. He said he was in usual state of health yesterday and around 20:00 developed sudden-onset shortness of breath called his daughter who brought him to the emergency room. In the emergency room he was significantly hypoxic and in distress, initial blood pressure was elevated. He was then treated for acute pulmonary edema with diuretics oxygen supplementation and is breathing is significantly improved. He said yesterday he had says sudden severe shortness of breath that he could even on a intake water and he was very short of breath even trying to lay down. This has never happened to him before. He had no associated chest pain. His initial EKG shows sinus tachycardia with diffuse ST nonspecific changes. Repeat EKG this morning shows J-point depression with T-wave inversions high lateral leads. His initial troponin was not 500 range, repeat troponin this morning is in the 1500 range. His BNP is 1000. His chest x-ray consistent with pulmonary edema. Bedside echocardiogram shows dilated LV with severely reduced LV systolic function with regionality in the LAD territory with moderate aortic regurgitation. Review of Systems Constitutional: Constitutional: Reports no additional constitutional complaints Eyes: Eyes: Reports no additional eye complaints Cardiovascular: Cardiovascular: Denies chest pain, Denies syncope, Denies leg edema, Denies lightheadedness, Denies palpitations, Reports dyspnea and Reports orthopnea Respiratory: Respiratory: Denies cough, Reports dyspnea and Denies wheezing Gastrointestinal: Gastrointestinal: Reports no additional gastrointestinal complaints Genitourinary: Genitourinary: Reports no additional male genitourinary complaints Musculoskeletal: Musculoskeletal: Reports no additional musculoskeletal complaints Integumentary/Breasts: Skin/Breast: Reports system reviewed and no additional complaints, except as docu Neurologic: Reports system reviewed and no additional complaints, except as documented and Denies syncope Psychiatric: Psychiatric: Reports no additional psychiatric complaints Endocrine: Endocrine: Reports no additional endocrine complaints and Denies palpitations Hematologic/Lymphatic: Hematologic/Lymphatic: Reports no additional hematologic/lymphatic complaints Allergic/Immunologic: Allergic/Immunologic: Reports no additional allergic/immunologic complaints and Denies wheezing FOR[facility]LY [facility] Past Medical History Medical History Anorexia Arthritis Cough GERD (gastroesophageal reflux disease) Gout Hiatal hernia Hx of low back pain Smoker Family History Family History Other No family history of coronary artery disease Surgical History Surgical History H/O elbow surgery Hx of esophagogastroduodenoscopy Social History Social History Are you a primary professional healthcare representative to a significant other at home: No Do you presently have visiting nurse or other home services: No Patient Tobacco Use Status: Current everyday Tobacco user Tobacco use type: Cigarette Cigarette Packs Per Day: 1 Cigarettes Per Day: 20.0 Years Smoked: 60+ Advance Directives: Yes Advance Directives on File: Yes Advance Directives Date on File: 08/14/21 Meds Allergies Allergy/AdvReac Type Severity Reaction Status Date / Time No Known Allergies Allergy Verified 09/16/21 14:26 Active Medications: Current Medications Acetaminophen (Acetaminophen 325 Mg Tablet) 650 mg PO Q6H PRN PRN Reason: Pain, Mild (Pain Scale 1-3) Aspirin (Aspirin Enteric Coated 81 Mg Tablet.Dr) 81 mg PO DAILY [facility] Atorvastatin Calcium (Atorvastatin Calcium 40 Mg Tablet) 40 mg PO DAILY [facility] Docusate Sodium (Docusate Sodium 100 Mg Capsule) 100 mg PO DAILY PRN PRN Reason: Constipation Furosemide (Furosemide 40 Mg/4 Ml Vial) 40 mg IVPUSH BID@0900,1800 [facility]; Protocol Last Admin: 02/25/22 08:47 Dose: 40 mg Heparin Sodium (Porcine) (Heparin Sodium,Porcine 5,000 Unit/Ml Vial) 2,400 unit 40 unit/kg (2400 unit) IVPUSH PROTOCOL BOLUS PRN; Protocol PRN Reason: 40 unit/kg - Heparin Protocol Heparin Sodium (Porcine) (Heparin Sodium,Porcine 5,000 Unit/Ml Vial) 4,900 unit 80 unit/kg (4900 unit) IVPUSH PROTOCOL BOLUS PRN; Protocol PRN Reason: 80 unit/kg - Heparin Protocol Heparin Sodium/Sodium Chloride (Heparin Sodium,Porcine/1/2ns) 25,000 unit in 250 mls @ 0 mls/hr IVCONT .Q0M [facility]; Protocol Nitroglycerin (Nitroglycerin 2 % Oint 1 Gm Packet) 0.5 inch TRANSDERMA TID@0800,1400,2000 [facility] Ondansetron HCl (Ondansetron Hcl 4 Mg/2 Ml Vial) 4 mg IVPUSH Q8H PRN PRN Reason: Nausea and Vomiting Pharmacy Consult (Consult Rx Perform Med Rec) 1 each MISCELLANE ONCE PRN PRN Reason: Consult order Sodium Chloride (0.9 % Sodium Chloride Flush 3 Ml Syringe) 3 ml IVFLUSH QSHIFT [facility] Last Admin: 02/25/22 07:00 Dose: 3 ml Home Medications Medication Instructions Recorded Confirmed Last Taken Type No Known Home Meds 02/25/22 02/25/22 Unknown History Physical Exam Vital Signs: Vital Signs: Last Vital Signs Temp 98.2 F 02/25/22 06:24 Pulse 96 02/25/22 08:03 Resp 22 H 02/25/22 08:03 BP 129/62 02/25/22 08:03 Pulse Ox 97 02/25/22 08:03 O2 Del Method 02/25/22 08:03 O2 Flow Rate 3 02/25/22 08:03 BMI result Body Mass Index 21.4 Const: General: cooperative, alert, awake, in distress mild and respiratory and ill appearing Nutritional Appearance: thin Orientation/consciousness: patient oriented x3 HEENT: Head: Yes normocephalic and Yes atraumatic Neck: Neck: Yes trachea midline and Yes no JVD Resp: Effort & Inspection: respiratory distress Auscultation: crackles (Minimal at bases) Cardio: Jugular venous distension: no JVD Rate: tachycardic Rhythm: abnormal rhythm with ectopic beats Heart sounds: S1 normal heart sound present, S2 normal heart sound present, no click, Gallop heart sound present, no murmurs and no rubs GI: Auscultation: normal bowel sounds Skin: General skin exam: no rashes or lesions noted Neuro: General: patient oriented x3 and no focal motor deficits Extrem: General: Yes no clubbing, cyanosis or edema Psych: Appearance: grossly normal Objective Labs and Meds Result diagrams: 02/25/22 04:30 02/25/22 04:30 Lab results: Laboratory Results - last 24 hr 02/25/22 02/25/22 02/25/22 04:30 04:30 04:30 WBC 18.0 H RBC 4.99 Hgb 14.1 Hct 44.3 MCV 88.8 MCH 28.3 MCHC 31.8 RDW 15.3 Plt Count 315 MPV 11.2 Immature Gran % (Auto) 0.4 Neut % (Auto) 89.8 H Lymph % (Auto) 3.3 L [place] % (Auto) 6.2 Eos % (Auto) 0.0 Baso % (Auto) 0.3 Lymph # (Auto) 0.6 L [place] # (Auto) 1.1 Eos # (Auto) 0.0 Baso # (Auto) 0.1 Abs Immat Gran (auto) 0.07 H Absolute Neuts (auto) 16.2 H Absolute Nucleated RBC 0.000 Nucleated RBC % (auto) 0.0 PT INR VBG pH VBG pCO2 VBG pO2 VBG HCO3 VBG O2 Saturation VBG Base Excess Sodium 142 Potassium 4.9 Chloride 108 Carbon Dioxide 20 L Anion Gap 19 BUN 27 H Creatinine 1.02 Estim Creat Clear Calc 52.5 Estimated GFR > 60 Random Glucose 119 H Lactic Acid Lactic Acid F/U @ 2Hr Calcium 9.6 Total Bilirubin 0.4 Direct Bilirubin < 0.2 AST 37 ALT 16 Alkaline Phosphatase 123 H Troponin I High Sens 508.4 H* B-Natriuretic Peptide Total Protein 7.9 Albumin 4.3 Triglycerides 83 Cholesterol 234 LDL Cholesterol, Calc 166 HDL Cholesterol 52 Urine Color Urine Appearance Urine pH Ur Specific [place] Urine Protein Urine Glucose (UA) Urine Ketones Urine Blood Urine Nitrite Ur Leukocyte Esterase Urine RBC Urine WBC Ur Squamous Epith Cells Urine Bacteria Hyaline Casts Influenza Type A (PCR) Influenza Type B (PCR) RSV RNA Qual (PCR) SARS-CoV-2 RNA (RT-PCR) 02/25/22 02/25/22 02/25/22 04:30 04:30 04:30 WBC RBC Hgb Hct MCV MCH MCHC RDW Plt Count MPV Immature Gran % (Auto) Neut % (Auto) Lymph % (Auto) [place] % (Auto) Eos % (Auto) Baso % (Auto) Lymph # (Auto) [place] # (Auto) Eos # (Auto) Baso # (Auto) Abs Immat Gran (auto) Absolute Neuts (auto) Absolute Nucleated RBC Nucleated RBC % (auto) PT 12.8 INR 1.1 VBG pH VBG pCO2 VBG pO2 VBG HCO3 VBG O2 Saturation VBG Base Excess Sodium Potassium Chloride Carbon Dioxide Anion Gap BUN Creatinine Estim Creat Clear Calc Estimated GFR Random Glucose Lactic Acid 2.3 H* Lactic Acid F/U @ 2Hr Calcium Total Bilirubin Direct Bilirubin AST ALT Alkaline Phosphatase Troponin I High Sens B-Natriuretic Peptide 1046 H Total Protein Albumin Triglycerides Cholesterol LDL Cholesterol, Calc HDL Cholesterol Urine Color Urine Appearance Urine pH Ur Specific [place] Urine Protein Urine Glucose (UA) Urine Ketones Urine Blood Urine Nitrite Ur Leukocyte Esterase Urine RBC Urine WBC Ur Squamous Epith Cells Urine Bacteria Hyaline Casts Influenza Type A (PCR) Influenza Type B (PCR) RSV RNA Qual (PCR) SARS-CoV-2 RNA (RT-PCR) 02/25/22 02/25/22 02/25/22 04:30 04:34 07:04 WBC RBC Hgb Hct MCV MCH MCHC RDW Plt Count MPV Immature Gran % (Auto) Neut % (Auto) Lymph % (Auto) [place] % (Auto) Eos % (Auto) Baso % (Auto) Lymph # (Auto) [place] # (Auto) Eos # (Auto) Baso # (Auto) Abs Immat Gran (auto) Absolute Neuts (auto) Absolute Nucleated RBC Nucleated RBC % (auto) PT INR VBG pH 7.34 VBG pCO2 35 VBG pO2 39 VBG HCO3 19 L VBG O2 Saturation 59.0 VBG Base Excess -5.2 Sodium Potassium Chloride Carbon Dioxide Anion Gap BUN Creatinine Estim Creat Clear Calc Estimated GFR Random Glucose Lactic Acid Lactic Acid F/U @ 2Hr 1.6 Calcium Total Bilirubin Direct Bilirubin AST ALT Alkaline Phosphatase Troponin I High Sens B-Natriuretic Peptide Total Protein Albumin Triglycerides Cholesterol LDL Cholesterol, Calc HDL Cholesterol Urine Color Urine Appearance Urine pH Ur Specific [place] Urine Protein Urine Glucose (UA) Urine Ketones Urine Blood Urine Nitrite Ur Leukocyte Esterase Urine RBC Urine WBC Ur Squamous Epith Cells Urine Bacteria Hyaline Casts Influenza Type A (PCR) NEGATIVE Influenza Type B (PCR) NEGATIVE RSV RNA Qual (PCR) NEGATIVE SARS-CoV-2 RNA (RT-PCR) NEGATIVE 02/25/22 02/25/22 07:04 07:54 WBC RBC Hgb Hct MCV MCH MCHC RDW Plt Count MPV Immature Gran % (Auto) Neut % (Auto) Lymph % (Auto) [place] % (Auto) Eos % (Auto) Baso % (Auto) Lymph # (Auto) [place] # (Auto) Eos # (Auto) Baso # (Auto) Abs Immat Gran (auto) Absolute Neuts (auto) Absolute Nucleated RBC Nucleated RBC % (auto) PT INR VBG pH VBG pCO2 VBG pO2 VBG HCO3 VBG O2 Saturation VBG Base Excess Sodium Potassium Chloride Carbon Dioxide Anion Gap BUN Creatinine Estim Creat Clear Calc Estimated GFR Random Glucose Lactic Acid Lactic Acid F/U @ 2Hr Calcium Total Bilirubin Direct Bilirubin AST ALT Alkaline Phosphatase Troponin I High Sens 1542.2 H* B-Natriuretic Peptide Total Protein Albumin Triglycerides Cholesterol LDL Cholesterol, Calc HDL Cholesterol Urine Color Yellow Urine Appearance Clear Urine pH 5.0 Ur Specific [place] 1.010 Urine Protein Negative Urine Glucose (UA) Negative Urine Ketones Negative Urine Blood Trace H Urine Nitrite Negative Ur Leukocyte Esterase Negative Urine RBC 0-2 Urine WBC 0-5 Ur Squamous Epith Cells 0-2 Urine Bacteria None Seen Hyaline Casts 0-2 Influenza Type A (PCR) Influenza Type B (PCR) RSV RNA Qual (PCR) SARS-CoV-2 RNA (RT-PCR) Imaging Radiologist's impression: Impressions Chest X-Ray 02/25/22 05:40 IMPRESSION: Interstitial opacities in both lungs as can be seen with interstitial pulmonary edema. Viral or atypical pneumonia or on the differential. No dense airspace consolidation. Assessment and Plan (1) Acute pulmonary edema: Status: Acute Patient presents with acute respiratory failure secondary to acute pulmonary edema which appears to be ischemic in nature with echocardiograms consistent with severe LV systolic dysfunction with regionality to LAD. High likelihood of underlying significant coronary artery disease. Patient has improved significantly with minimal diuresis. Rising troponins are suggestive of acute coronary syndrome and possible occlusion of the LAD territory. Will require further evaluation. Clinically does not appear to be in significant respiratory distress at this point time. Will give him aspirin, high-intensity statin therapy and also give him nitropaste as both coronary vaso dilator as well as veno dilator to reduce myocardial stress and burden improve coronary blood flow. Hold off on beta-blockers given that he has sudden-onset pulmonary edema and sinus tachycardia is his compensated he mechanism and would avoid given the negative ionotropic agent at this point in time. (2) Acute coronary syndrome: Status: Acute Patient's acute pulmonary edema related acute coronary syndrome most likely related to LAD territory ischemia. Will require cardiac catheterization. Discussed the case with Dr. Jean, who graciously accepted him to his service at CCU at [facility]. Patient should be started on IV heparin, aspirin high-intensity statin therapy. Nitropaste as above. Discussed with patient about the need for cardiac catheterization urgently. Both the patient patient's daughter were bedside agreed for the transfer and cardiac catheterization. Discussed with the patient the risks, benefits, alternatives 2nd open to the cardiac catheterization. They understand agree. Will follow up with him as an outpatient. Greater than 45 minutes was spent in managing his complex care. Procedures Date of Service Date of Service: 02/25/22
[2022-02-25] MEDS: Aspirin Enteric Coated 81 MG TABLET.DR PO (09:07)
[2022-02-25] MEDS: Atorvastatin Calcium 40 MG TABLET PO (09:07)
[2022-02-25] MEDS: Nitroglycerin 2 % Oint 1 GM Packet 0.5 INCH TRANSDERMA (09:07)
[2022-02-25] MEDS: Heparin Sodium,Porcine/1/2NS 25,000 UNIT/250 ML IV.SOLN 7.68 UNIT IVCONT (09:33)
[2022-02-25] MEDS: Aspirin 81 MG TAB.CHEW 324 MG PO (09:37)
--- NOTE | 2022-02-25 09:41 | MHC.CM.PN ---
met with pt AND HIS DGTER IN ED PT REPORTS LIVING ALONE HE HAD NO PREVIOUS SERVICES ,HE IS BEING TRANSFERRED TO [facility]
[2022-02-25 09:48] LABS: PTT Heparin Drip 39.1 SEC (53-77.9)
--- NOTE | 2022-02-25 10:15 | PC.NURSE ---
PER DR BETANCOURT THIS PT ACCEPT TO [facility] AND WE ARE WAITING FOR A ROOM ASSIGNMENT FROM [facility] PT TX LINE WHEN ROOM AVAILABLE
--- NOTE | 2022-02-25 11:36 | PM.DS ---
DS: Providers Provider Date of Service: 02/25/22 Date of admission: 02/25/22 06:38 Primary care physician: Alvin Bee MD Consults: 02/25/22 07:09 Consult to Cardiology Routine Consulting Provider: Philippe Knutson Reason for consultation: CHF Has provider been notified: No DS: Diagnosis Discharge Diagnosis (1) Acute pulmonary edema: Status: Acute (2) Acute coronary syndrome: Status: Acute DS: Summary Hospital Course Hospital Course: Date of Service: 02/25/22 Chief Complaint: SOB 76-year-old with past medical history of for gout , lifelong smoker, with no other past medical history presents to the hospital with complaints of sudden onset shortness of breath.? Patient reports that he was sleeping when he woke up with sudden onset shortness of breath.? He had orthopnea and PND, no lower extremity edema, he denies any chest pain, he reports no previous similar episode.? Denies any abdominal pain nausea or vomiting, no diarrhea constipation, no urinary symptoms and no lower extremity edema. Patient reports that he does not usually have a regular follow-up with physician because he never needed to. On arrival to the ED, patient has a heart rate of 134, respiratory rate of 24, blood pressure of 197/94, satting 93% on room air Labs are significant for WBC count of 18, pH of 7.34, lactic acid of 2.3, troponin of 508, BNP of 1046, respiratory panel was negative for COVID, influenza, RSV Chest x-ray shows interstitial opacities in both lungs seen with interstitial pulmonary edema hospital course 76-year-old gentleman with past medical history significant for gout, active tobacco use disorder presented to [facility] with acute onset of shortness of breath since last night without associated diaphoresis or chest discomfort, initial EKG in the ER showed nonspecific ST T wave changes patient was noted to be in acute respiratory failure, chest x-ray showed bilateral pulmonary interstitial opacities with perihilar and bibasilar predominance, no dense airspace consolidation was noted, patient admitted to intermediate care unit with a diagnosis of acute pulmonary edema likely related to underlying ischemia, troponin bumped up to 1500 range, patient treated with IV Lasix shortness of breath improved, patient placed on IV heparin, nitrates, high-dose statins and aspirin, repeat EKG showed T-wave inversion in lateral leads, urgent echocardiogram showed severe LV systolic dysfunction in LAD territory high likely hold of significant coronary artery disease therefore patient is being transferred to [facility] for cardiac catheterization troponin 508 on admission bumped to 1542, BNP 1046, LDL 166 with total cholesterol of 234 patient with coronary artery disease risk factors of hyperlipidemia, hypertension, active tobacco use disorder history of gout not on any medications Time Spent with Patient Time attestation: Total time spent providing and/or coordinating discharge services: Discharge coordination time: Greater than 30 minutes Quality: Safe Use of Opioids Does Pt have an Active Cancer Diagnosis on the Problem List?: No Quality: Stroke Does the patient have a stroke diagnosis?: No Physical Exam Vital Signs: Vital Signs: Last Vital Signs Temp 98.0 F 02/25/22 10:26 Pulse 94 02/25/22 10:26 Resp 27 H 02/25/22 10:26 BP 126/61 02/25/22 10:26 Pulse Ox 97 02/25/22 10:26 O2 Del Method 02/25/22 10:26 O2 Flow Rate 3 02/25/22 10:26 BMI result Body Mass Index 21.4 Const: Other: General no acute distress. Neck supple no JVD. CVS regular rate rhythm, no murmurs Respiratory lungs clear to auscultation, no respiratory distress, no wheeze, fine bibasilar crackles Gastrointestinal abdomen soft, nontender, bowel sounds audible, no no guarding , no rigidity. Extremities no edema. Neuro nonfocal patient moving all 4 extremity speech clear. Skin no rash psych appropriate affect DS: Data Data Completed and Pending Labs on day of discharge: Laboratory Results - last 24 hr 02/25/22 02/25/22 02/25/22 04:30 04:30 04:30 WBC 18.0 H RBC 4.99 Hgb 14.1 Hct 44.3 MCV 88.8 MCH 28.3 MCHC 31.8 RDW 15.3 Plt Count 315 MPV 11.2 Immature Gran % (Auto) 0.4 Neut % (Auto) 89.8 H Lymph % (Auto) 3.3 L [place] % (Auto) 6.2 Eos % (Auto) 0.0 Baso % (Auto) 0.3 Lymph # (Auto) 0.6 L [place] # (Auto) 1.1 Eos # (Auto) 0.0 Baso # (Auto) 0.1 Abs Immat Gran (auto) 0.07 H Absolute Neuts (auto) 16.2 H Absolute Nucleated RBC 0.000 Nucleated RBC % (auto) 0.0 PT INR aPTT Heparin Protocol VBG pH VBG pCO2 VBG pO2 VBG HCO3 VBG O2 Saturation VBG Base Excess Sodium 142 Potassium 4.9 Chloride 108 Carbon Dioxide 20 L Anion Gap 19 BUN 27 H Creatinine 1.02 Estim Creat Clear Calc 52.5 Estimated GFR > 60 Random Glucose 119 H Lactic Acid Lactic Acid F/U @ 2Hr Calcium 9.6 Total Bilirubin 0.4 Direct Bilirubin < 0.2 AST 37 ALT 16 Alkaline Phosphatase 123 H Troponin I High Sens 508.4 H* B-Natriuretic Peptide Total Protein 7.9 Albumin 4.3 Triglycerides 83 Cholesterol 234 LDL Cholesterol, Calc 166 HDL Cholesterol 52 Procalcitonin Urine Color Urine Appearance Urine pH Ur Specific [place] Urine Protein Urine Glucose (UA) Urine Ketones Urine Blood Urine Nitrite Ur Leukocyte Esterase Urine RBC Urine WBC Ur Squamous Epith Cells Urine Bacteria Hyaline Casts Influenza Type A (PCR) Influenza Type B (PCR) RSV RNA Qual (PCR) SARS-CoV-2 RNA (RT-PCR) 02/25/22 02/25/22 02/25/22 04:30 04:30 04:30 WBC RBC Hgb Hct MCV MCH MCHC RDW Plt Count MPV Immature Gran % (Auto) Neut % (Auto) Lymph % (Auto) [place] % (Auto) Eos % (Auto) Baso % (Auto) Lymph # (Auto) [place] # (Auto) Eos # (Auto) Baso # (Auto) Abs Immat Gran (auto) Absolute Neuts (auto) Absolute Nucleated RBC Nucleated RBC % (auto) PT 12.8 INR 1.1 aPTT Heparin Protocol VBG pH VBG pCO2 VBG pO2 VBG HCO3 VBG O2 Saturation VBG Base Excess Sodium Potassium Chloride Carbon Dioxide Anion Gap BUN Creatinine Estim Creat Clear Calc Estimated GFR Random Glucose Lactic Acid 2.3 H* Lactic Acid F/U @ 2Hr Calcium Total Bilirubin Direct Bilirubin AST ALT Alkaline Phosphatase Troponin I High Sens B-Natriuretic Peptide 1046 H Total Protein Albumin Triglycerides Cholesterol LDL Cholesterol, Calc HDL Cholesterol Procalcitonin Urine Color Urine Appearance Urine pH Ur Specific [place] Urine Protein Urine Glucose (UA) Urine Ketones Urine Blood Urine Nitrite Ur Leukocyte Esterase Urine RBC Urine WBC Ur Squamous Epith Cells Urine Bacteria Hyaline Casts Influenza Type A (PCR) Influenza Type B (PCR) RSV RNA Qual (PCR) SARS-CoV-2 RNA (RT-PCR) 02/25/22 02/25/22 02/25/22 04:30 04:30 04:34 WBC RBC Hgb Hct MCV MCH MCHC RDW Plt Count MPV Immature Gran % (Auto) Neut % (Auto) Lymph % (Auto) [place] % (Auto) Eos % (Auto) Baso % (Auto) Lymph # (Auto) [place] # (Auto) Eos # (Auto) Baso # (Auto) Abs Immat Gran (auto) Absolute Neuts (auto) Absolute Nucleated RBC Nucleated RBC % (auto) PT INR aPTT Heparin Protocol VBG pH 7.34 VBG pCO2 35 VBG pO2 39 VBG HCO3 19 L VBG O2 Saturation 59.0 VBG Base Excess -5.2 Sodium Potassium Chloride Carbon Dioxide Anion Gap BUN Creatinine Estim Creat Clear Calc Estimated GFR Random Glucose Lactic Acid Lactic Acid F/U @ 2Hr Calcium Total Bilirubin Direct Bilirubin AST ALT Alkaline Phosphatase Troponin I High Sens B-Natriuretic Peptide Total Protein Albumin Triglycerides Cholesterol LDL Cholesterol, Calc HDL Cholesterol Procalcitonin 0.79 Urine Color Urine Appearance Urine pH Ur Specific [place] Urine Protein Urine Glucose (UA) Urine Ketones Urine Blood Urine Nitrite Ur Leukocyte Esterase Urine RBC Urine WBC Ur Squamous Epith Cells Urine Bacteria Hyaline Casts Influenza Type A (PCR) NEGATIVE Influenza Type B (PCR) NEGATIVE RSV RNA Qual (PCR) NEGATIVE SARS-CoV-2 RNA (RT-PCR) NEGATIVE 02/25/22 02/25/22 02/25/22 07:04 07:04 07:54 WBC RBC Hgb Hct MCV MCH MCHC RDW Plt Count MPV Immature Gran % (Auto) Neut % (Auto) Lymph % (Auto) [place] % (Auto) Eos % (Auto) Baso % (Auto) Lymph # (Auto) [place] # (Auto) Eos # (Auto) Baso # (Auto) Abs Immat Gran (auto) Absolute Neuts (auto) Absolute Nucleated RBC Nucleated RBC % (auto) PT INR aPTT Heparin Protocol VBG pH VBG pCO2 VBG pO2 VBG HCO3 VBG O2 Saturation VBG Base Excess Sodium Potassium Chloride Carbon Dioxide Anion Gap BUN Creatinine Estim Creat Clear Calc Estimated GFR Random Glucose Lactic Acid Lactic Acid F/U @ 2Hr 1.6 Calcium Total Bilirubin Direct Bilirubin AST ALT Alkaline Phosphatase Troponin I High Sens 1542.2 H* B-Natriuretic Peptide Total Protein Albumin Triglycerides Cholesterol LDL Cholesterol, Calc HDL Cholesterol Procalcitonin Urine Color Yellow Urine Appearance Clear Urine pH 5.0 Ur Specific [place] 1.010 Urine Protein Negative Urine Glucose (UA) Negative Urine Ketones Negative Urine Blood Trace H Urine Nitrite Negative Ur Leukocyte Esterase Negative Urine RBC 0-2 Urine WBC 0-5 Ur Squamous Epith Cells 0-2 Urine Bacteria None Seen Hyaline Casts 0-2 Influenza Type A (PCR) Influenza Type B (PCR) RSV RNA Qual (PCR) SARS-CoV-2 RNA (RT-PCR) 02/25/22 09:28 WBC RBC Hgb Hct MCV MCH MCHC RDW Plt Count MPV Immature Gran % (Auto) Neut % (Auto) Lymph % (Auto) [place] % (Auto) Eos % (Auto) Baso % (Auto) Lymph # (Auto) [place] # (Auto) Eos # (Auto) Baso # (Auto) Abs Immat Gran (auto) Absolute Neuts (auto) Absolute Nucleated RBC Nucleated RBC % (auto) PT INR aPTT Heparin Protocol 39.1 L VBG pH VBG pCO2 VBG pO2 VBG HCO3 VBG O2 Saturation VBG Base Excess Sodium Potassium Chloride Carbon Dioxide Anion Gap BUN Creatinine Estim Creat Clear Calc Estimated GFR Random Glucose Lactic Acid Lactic Acid F/U @ 2Hr Calcium Total Bilirubin Direct Bilirubin AST ALT Alkaline Phosphatase Troponin I High Sens B-Natriuretic Peptide Total Protein Albumin Triglycerides Cholesterol LDL Cholesterol, Calc HDL Cholesterol Procalcitonin Urine Color Urine Appearance Urine pH Ur Specific [place] Urine Protein Urine Glucose (UA) Urine Ketones Urine Blood Urine Nitrite Ur Leukocyte Esterase Urine RBC Urine WBC Ur Squamous Epith Cells Urine Bacteria Hyaline Casts Influenza Type A (PCR) Influenza Type B (PCR) RSV RNA Qual (PCR) SARS-CoV-2 RNA (RT-PCR) Discharge Plan Discharge Anticipated Discharge Date/Time: 02/25/22 11:35 Patient Disposition: Xfer Acute Care Hospital Discharge Diagnosis: acute coronary syndrome acute pulmonary edema Referrals: [facility] [Other] - 1 Week Alvin Bee MD [Primary Care Provider] - 1 Week Discharge Medications: New atorvastatin 80 mg Tablet 80 mg PO DAILY Qty: 30 0RF Nitro-Bid 2 % Ointment 0.5 inch transdermal TID@0800,1400,2000 Qty: 30 0RF heparin (porcine) 5,000 unit/mL Solution 2,600 unit IVPUSH PROTOCOL BOLUS PRN (Reason: 40 Unit/Kg - Heparin Protocol) Qty: 1 0RF heparin(porcine) in 0.45% NaCl 25,000 unit/250 mL Parenteral Solution 25,000 unit continuous IV infusion .Q0M Qty: 1 0RF aspirin 81 mg Tablet,Delayed Release (Dr/Ec) 81 mg PO DAILY Qty: 30 0RF Discharge Orders: Discharge Order (Routine); Ordered 02/25/22 Ordered By: Laron Villela Diet: Low fat, low cholesterol Activity on Discharge: bedrest Stand Alone Forms: Patient Portal Discharge page Care Plan Goals: to [facility] for cardiac catheterization for high likelihood of underlying significant coronary artery disease continue heparin, aspirin, statin and nitrates Health Concerns: acute coronary syndrome Plan of Treatment: transferred to [facility] for cardiac catheterization Assessment: as above
--- NOTE | 2022-02-25 13:04 | PC.NURSE ---
@ 1303 CALL PLACED TO [facility] PT TX LINE TO CHECK ON BED ASSIGNMENT CHANTAL ANSWERS THEN SAYS THIS PT HAS BEEN ACCEPTED TO [facility] AND THEY WILL CALL US WITH ROOM ASSIGNMENT AND ACCEPTING MD SOON
--- NOTE | 2022-02-25 14:07 | PC.NURSE ---
[facility] PT TX LINE CALLS AND GIVES ROOM ASSIGNMENT AND ACCEPTING MD [facility] 5 BED 4 [phone] ACCEPTING MD: DR GARDNER
--- NOTE | 2022-02-25 14:13 | PC.NURSE ---
[facility] FROM [place] CONTACTED VIA TIGER TEXT FOR ALS TRANSPORT TO [facility] MM5 RM4 WITH ALS COMPLETE WITH [employer] ASSOCIATE JUSTICE, OXYGEN @ HEPARIN DRIP
--- NOTE | 2022-02-25 14:32 | PC.NURSE ---
LATE ENTRY: ROOM ASSIGNMENT RECEIVED FROM [facility] AT 1345. AND PT AWARE OF PLAN.
== END 2022-02-25 15:30 | disposition short-term general hospital (02) | DRG 311 ==
LOC: HO.ED 06:20 → HO.EDOVER 06:42
PROVIDERS: Admitting Provider Internal Medicine; Emergency Provider Emergency Medicine; PCP Internal Medicine; Visit Provider Hospitalist
DX: I24.9 Acute ischemic heart disease, unspecified (principal); J96.01 Acute respiratory failure with hypoxia; I16.1 Hypertensive emergency; F17.210 Nicotine dependence, cigarettes, uncomplicated; Z71.6 Tobacco abuse counseling; Z20.822 Contact with and (suspected) exposure to COVID-19; I10 Essential (primary) hypertension; E78.5 Hyperlipidemia, unspecified; I25.10 Atherosclerotic heart disease of native coronary artery without angina pectoris; M10.9 Gout, unspecified; M19.90 Unspecified osteoarthritis, unspecified site; I50.9 Heart failure, unspecified; I35.1 Nonrheumatic aortic (valve) insufficiency; Z79.899 Other long term (current) drug therapy
CPT/HCPCS: 0241U; 36415; 71045; 80048; 80061; 80076; 81001; 81003; 82803; 83605; 83880; 84145; 84484; 85025; 85610; 85730; 87040; 93005; 93306; 99285; J1650; J1940; J2543

== ENCOUNTER 2022-04-16 12:19 | Outpatient (REF) | payer MEDICARE, SELFPAY ==
[2022-04-16 12:34] LABS: MANUAL DIFF FLAG NO
[2022-04-16 13:29] LABS: Basophils Absolute Auto 0.1 X10*3/uL (0.0-0.2); Basophils Percent Auto 1.2 % (0-2); Eosinophils Absolute Auto 0.3 X10*3/uL (0.0-0.4); Eosinophils Percent Auto 4.5 % (0-4); Hematocrit 32.7 % (42.0-52.0); Imm Gran Abs Auto 0.01 X10*3/uL (0.00-0.03); Imm Gran Pct Auto 0.2 % (0.0-0.4); Lymphocytes Absolute Auto 1.3 X10*3/uL (1.2-4.9); Lymphocytes Percent Auto 20.1 % (20-40); Mean Corpuscular HGB Conc 30.6 g/dl (31.0-36.0); Mean Corpuscular Hemoglobin 28.2 pg (27.0-33.0); Mean Corpuscular Volume 92.1 fL (80.0-98.0); Mean Platelet Volume 10.8 fL (9.4-12.4); Monocytes Absolute Auto 0.7 X10*3/uL (0.1-1.2); Monocytes Percent Auto 10.3 % (2-11); Neutrophils Absolute Auto 4.2 x10*3/uL (2.0-8.3); Neutrophils Percent Auto 63.7 % (45-73); Platelet Count 307 X10*3/uL (160-400); Red Blood Count 3.55 X10*6/uL (4.60-5.80); Red Cell Distribution Width 15.6 % (11.0-16.0); White Blood Count 6.5 X10*3/uL (4.8-10.8)
[2022-04-16 13:59] LABS: Alanine Aminotransferase 13 U/L (0-40); Albumin Level 4.2 g/dL (3.5-5.0); Alkaline Phosphatase 116 U/L (39-117); Anion Gap 14 (12-20); Aspartate Amino Transferase 17 U/L (5-37); Bilirubin Total 0.5 mg/dL (0.0-1.0); Blood Urea Nitrogen 29 mg/dL (9-16); C Reactive Protein 0.85 mg/dL (< or = 0.50); Calcium 9.2 mg/dL (8.4-10.2); Carbon Dioxide 27 mmol/L (22-29); Chloride 104 mmol/L (96-108); Cholesterol 132 mg/dL; Estimated Glomerular Filt Rate > 60; Glucose Random 101 mg/dL (60-115); HDL Cholesterol 41 mg/dL; LDL Cholesterol Calculated 74 mg/dl; Potassium 4.8 mmol/L (3.3-5.1); Sodium 140 mmol/L (135-145); Total Protein 7.2 g/dL (6.5-8.0); Triglycerides 88 mg/dL
[2022-04-16 14:22] LABS: Erythrocyte Sedimentation Rate 50 MM/HR (0-15)
== END 2022-04-16 12:20 | disposition home or self-care (01) ==
LOC: HO.LAB 12:19
PROVIDERS: PCP Internal Medicine; Visit Provider Internal Medicine
DX: I25.10 Atherosclerotic heart disease of native coronary artery without angina pectoris (principal); I10 Essential (primary) hypertension
CPT/HCPCS: 36415; 80053; 80061; 84443; 85025; 85652; 86140

== ENCOUNTER 2022-05-12 15:02 | Outpatient (REF) | payer MEDICARE, SELFPAY ==
[2022-05-12 15:49] LABS: Anion Gap 10 (12-20); Blood Urea Nitrogen 23 mg/dL (9-16); Calcium 8.9 mg/dL (8.4-10.2); Carbon Dioxide 28 mmol/L (22-29); Chloride 110 mmol/L (96-108); Estimated Glomerular Filt Rate > 60; Glucose Random 99 mg/dL (60-115); Potassium 4.6 mmol/L (3.3-5.1); Sodium 143 mmol/L (135-145)
== END 2022-05-12 15:03 | disposition home or self-care (01) ==
LOC: HO.LAB 15:02
PROVIDERS: PCP Internal Medicine; Visit Provider Physician Assistant Medical
DX: I50.9 Heart failure, unspecified (principal)
CPT/HCPCS: 36415; 80048

== ENCOUNTER 2022-07-01 12:08 | Outpatient (REF) | payer MEDICARE, SELFPAY ==
[2022-07-01 13:25] LABS: B Type Natriuretic Peptide 138 pg/mL (<100)
[2022-07-01 13:47] LABS: Anion Gap 13 (12-20); Blood Urea Nitrogen 20 mg/dL (9-16); Carbon Dioxide 26 mmol/L (22-29); Chloride 108 mmol/L (96-108); Estimated Glomerular Filt Rate > 60; Glucose Random 98 mg/dL (60-115); Potassium 4.7 mmol/L (3.3-5.1); Sodium 142 mmol/L (135-145)
== END 2022-07-01 12:09 | disposition home or self-care (01) ==
LOC: HO.LAB 12:08
PROVIDERS: PCP Internal Medicine; Visit Provider Internal Medicine Cardiovascular Disease
DX: I50.9 Heart failure, unspecified (principal)
CPT/HCPCS: 36415; 80048; 83880

== ENCOUNTER 2022-08-11 08:14 | Outpatient (REF) | payer MEDICARE, SELFPAY ==
--- NOTE | ~2022-08-11 | CT_ITS ---
EXAMINATION: CT CHEST WITHOUT CONTRAST CLINICAL INFORMATION: Thoracic aortic aneurysm COMPARISON: CT chest 04/03/2021 and chest x-ray 02/25/2022 TECHNIQUE: Multidetector volumetric CT imaging of the chest was done. Axial MIP volume rendering provided. Sagittal and coronal reformatted images were obtained. This CT examination was performed using dose optimization techniques as appropriate, variously including the following: *Automated exposure control *Adjustment of mA and/or kV according to patient size (this includes techniques or standardized protocols for targeted exams where dose is matched to indication/reason for exam; i.e. extremities or head) *Use of iterative reconstruction technique DLP: 130 mGy-cm FINDINGS: SUBSTANCE ABUSE PREVENTION COORDINATOR: Expanded lungs are clear. LUNGS: There is bilateral apical parenchymal scarring and pleural thickening. There is subpleural reticular interstitial thickening similar to previous study. There are punctate calcified 1-2 mm nodules which are stable. There is a tumor, noncalcified nodule, right lower lobe medial basal segment, on axial image 509/5, stable. No acute pneumonic consolidation, mass. Mild atelectatic changes seen in the right upper lobe anterior segment MEDIASTINUM: The thyroid lobes are symmetrical. The central trachea and the bronchi are widely patent. Heart size is normal. There is mild ascending aorta dilation measuring 4.5 x 4.2 cm, axial image 32/3. There is atherosclerotic calcification of the thoracic aorta and arch with no aneurysmal dilatation. There is no pericardial effusion. No abnormal size mediastinal or hilar lymph nodes seen. CORONARY ARTERY CALCIFICATION: Edyc-yg-vihhwlnz coronary artery calcifications are visualized. PLEURA: There is bilateral apical pleural thickening. No calcified plaques or pleural effusion. AXILLA: No abnormal lymph nodes seen in the axilla. There is a small right lateral thoracic wall noncalcified 4 mm node, axial image 32/3. UPPER ABDOMEN: Visualized liver, spleen, pancreas and bilateral adrenal glands are unremarkable. There are bilateral renal cysts. OSSEOUS STRUCTURES: No lytic or sclerotic process seen. CT/CT chest wo IV con IMPRESSION: 1. Ascending aortic aneurysm measuring 4.5 cm. 2. Bilateral apical pleural thickening and parenchymal scarring is stable. 3. Punctate calcified and noncalcified pulmonary nodules are stable. No new nodules seen. 4. No abnormal mediastinal or axillary lymph nodes seen. Fleischner guidelines were followed.
== END 2022-08-11 08:15 | disposition home or self-care (01) ==
LOC: HO.CT 08:14
PROVIDERS: PCP Internal Medicine; Visit Provider Thoracic Surgery (Cardiothoracic Vascular Surgery)
DX: I71.20 Thoracic aortic aneurysm, without rupture, unspecified (principal)
CPT/HCPCS: 71250

== ENCOUNTER → 2022-09-14 13:49 | Outpatient (BNVA) | payer MEDICARE, SELFPAY | PROVIDERS: PCP Internal Medicine; Visit Provider Anesthesiology | DX: M47.816 Spondylosis without myelopathy or radiculopathy, lumbar region (principal); M46.1 Sacroiliitis, not elsewhere classified; M53.3 Sacrococcygeal disorders, not elsewhere classified | CPT/HCPCS: 99202 ==

== ENCOUNTER → 2022-10-07 14:31 | Outpatient (BNVA) | payer MEDICARE, SELFPAY | PROVIDERS: PCP Internal Medicine; Visit Provider Anesthesiology | DX: M47.816 Spondylosis without myelopathy or radiculopathy, lumbar region (principal); M46.1 Sacroiliitis, not elsewhere classified; M53.3 Sacrococcygeal disorders, not elsewhere classified | CPT/HCPCS: 99212 ==

== ENCOUNTER 2022-12-08 06:02 | Outpatient (REF) | payer MEDICARE, SELFPAY ==
--- NOTE | ~2022-12-08 | FL_ITS ---
EXAMINATION: XR FLUOROSCOPY WITH IMAGES CLINICAL INFORMATION: Spondylosis without myelopathy or radiculopathy, lumbar region. COMPARISON: None available. TECHNIQUE: Fluoroscopy Supervised By: Dr. Nabeel Shrestha. Fluoroscopy Time: 0.4 minutes. Cumulative Dose: 4.02 mGy. DAP: 0.699 Gycm2. Images: 4. FINDINGS: Images demonstrate needle placement and contrast injection adjacent to the left proximal lumbar vertebral bodies FL/FL guidance in treatment room IMPRESSION: Fluoroscopy guidance for pain management procedure
== END 2022-12-08 06:03 | disposition home or self-care (01) ==
LOC: CF 06:02
PROVIDERS: Visit Provider Anesthesiology
DX: M47.816 Spondylosis without myelopathy or radiculopathy, lumbar region (principal); M46.1 Sacroiliitis, not elsewhere classified; M53.3 Sacrococcygeal disorders, not elsewhere classified
CPT/HCPCS: 64493; 64494; 64495

== ENCOUNTER 2022-12-08 12:53 | Outpatient (AMB) | payer MEDICARE, SELFPAY ==
[2022-12-08 13:05] VITALS: BP 102/58; PULSE 79; RESP 14; O2SAT 97; BMI 20.7
--- NOTE | 2022-12-08 13:05 | MHC.OFFVIS ---
Intake Vital Signs 12/08/22 13:05 12/08/22 14:16 Height 5 ft 8 in 5 ft 8 in Weight 136 lb 136 lb BMI 20.7 20.7 BP 102/58 L 100/60 Blood Pressure Location Lt brachial Lt brachial Position Sitting Sitting Respiration 14 14 Pulse 79 71 Pulse Source Pulse Oximeter Pulse Oximeter Pulse Oximetry (%) 97 98 Oxygen Delivery Method Room Air Room Air Comment pre-op post-op Intake Visit Reasons: L DX L1-L2-L3 MBB/LOCAL Allergies No Known Allergies Allergy (Verified 12/08/22 13:06) PFSH Medical History Anorexia Arthritis Cough GERD (gastroesophageal reflux disease) Gout Hiatal hernia Hx of low back pain Smoker Surgical History H/O elbow surgery Hx of esophagogastroduodenoscopy Family History Other No family history of coronary artery disease Social History Are you a primary hearing healthcare practitioner to a significant other at home: No Do you presently have visiting nurse or other home services: No Patient Tobacco Use Status: Current everyday Tobacco user Tobacco use type: Cigarette Cigarette Packs Per Day: 1 Cigarettes Per Day: 20.0 Years Smoked: 60+ Advance Directives Date on File: 08/14/21 service: No Physical Exam Vital Signs: Last Vital Signs Pulse 71 12/08/22 14:16 Resp 14 12/08/22 14:16 BP 100/60 12/08/22 14:16 Pulse Ox 98 12/08/22 14:16 Oxygen Delivery Method Room Air 12/08/22 14:16 BMI result Body Mass Index 20.7 Assessment & Plan Assessment & Plan (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 ?Informed consent was explained to the patient. All questions were explained and? answered.? The patient was taken inside the operating room where she was positioned prone on the operating table. Time-out was performed delineating correct site, side, the nature of the procedure, patient's allergy, . All operating room staff was participating in OR time-out procedure. ? ? The lower back was prepped with ChloraPrep and draped with sterile towels.? C-arm was brought over the operating field and sq picture of L1- L2- L3- L4 vertebrae were delineated on the screen.? Point of interest were delineated as confluence of superior articular process of L1- L2- L3- L4 vertebra on the left with corresponding transverse processes ? The projection of the point of interest to the skin were injected with the small amount of local anesthetic lidocaine 2% 1-1.5 cc.? After that 22 gauge 3.5 inch spinal needle was driven sequentially to the points of interest in tunnel vision fashion. After needles gently contacted the bone at the point of interests the needle was injected with small amount of the contrast.? The injection of the contrast did not demonstrate any intravascular or intrathecal spread of the contrast.? After that injection of the? ropivacaine 0.5%-1cc was performed at each needle location.??after that the needles were removed and Bandaids were applied. ? Upon completion of the injections? needle was? removed and sterile Band-Aids were applied.? The patient tolerated procedure very well. Plan Clearance for Jed carver for 4 days Was received. We will restarted in 36 hours after the procedure. I will schedule him for left sided diagnostic L1-L2-L3-* medial branch block on the left. It will be done without sedation. Next appointment after injection. Patient appears to be interested in neuromodulation. With his pain high position Nevro SCS can be employed. Orders: Orders FL guidance in treatment room Today M47.816 - Spondylosis without myelopathy or radiculopathy, lumbar region Coding Level of Care Code Procedure Only Diagnoses Spondylosis of lumbar region without myelopathy or radiculopathy M47.816 Sacroiliitis M46.1 Sacroiliac joint dysfunction of both sides M53.3 Arthropathy of lumbar facet joint M47.816
[2022-12-08 14:16] VITALS: BP 100/60; PULSE 71; RESP 14; O2SAT 98; BMI 20.7
== END 2022-12-08 13:52 | disposition home or self-care (01) ==
PROVIDERS: PCP Internal Medicine; Visit Provider Anesthesiology
DX: M46.1 Sacroiliitis, not elsewhere classified (principal); M53.3 Sacrococcygeal disorders, not elsewhere classified; M47.816 Spondylosis without myelopathy or radiculopathy, lumbar region
CPT/HCPCS: 64493; 64494; 64495

== ENCOUNTER 2022-12-10 09:11 | Outpatient (AMB) | payer MEDICARE, SELFPAY ==
--- NOTE | 2022-12-10 09:20 | A.OFFVIS_ITS ---
Intake Vital Signs 12/10/22 09:23 Height 5 ft 8 in Weight 138 lb BMI 21.0 BP 140/68 H Blood Pressure Location Rt brachial Position Sitting Respiration 14 Pulse 78 Pulse Source Pulse Oximeter Pulse Oximetry (%) 97 Oxygen Delivery Method Room Air Intake Visit Reasons: L DX L1-L2-L3 MBB 12/08/22 Intake Note: patient comes in for post-op. Allergies No Known Allergies Allergy (Verified 12/10/22 09:23) HPI HPI Comments History of Present Illness Details Joe' is back in my office to discuss the resuts of the left sided medial branch block at T12 - L1- L2- L3- L4. He reported no changes in his pain level whatsoever after the procedure. He has significant osteoporosis and advanced spondylosis and spondyloarthritis on the images and it did not make the procedure easy. WE discussed today treatment options and I explained him that I see no indications to perform any further procedures or injections to address the lumbar spine arthritis.PSSP performed epidural steroid injections in presumption that his pain is stemming out of disc degeneration and spinal canal stenosis. Unfortunately those injections were also not effective. I offered him two different directions for the treatment of his pain: since our chronic opioid therapy program is currently closed for the new admissions he might request low dose opioid therapy. My recommendation in his situation would be tramadol, nucinta or buprenorphine formulations. Another option would be to treat his pain with neuromodulation such as SCS or ITDD. The brochures on SCS and ITDD were given to the patient. He will read them and will give us a call if he wants to go for a neuromodulation. 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 Dr. Hunter hagen on the matter requested, workload note was sent. Prior: very pleasant 77 years old gentleman who is in my office with complains on pain in the axial back. He is complaining on pain mostly on the left side of the back. He reports no pain on the right. We discussed possibility of treating his pain with diagnostic medial branch block. I will do L1-L2 and L3 medial branch block. In the past he received lower lumbar spine facet joint injection at L4-5 and L5-S1. He also received epidural steroid injection at L5-S1. He reports that this problem started on 01/21/2022.? She denies any inciting events.? She reports that 1 morning he woke and felt severe pain in the axial lower back.? He reports that movements aggravates his pain.? He reports that the pain is worse during the daytime and list severe at night. He received CT scan of the lumbar spine results of which dictated as below.? He never went for physical therapy.? He is very negative about physical therapy.? He does not want to consider physical therapy under no circumstances.? He reports that he received injection by [facility].? He reports that those injections were not helpful for his pain control..? He is currently taking? Eliquis for cardiac valve regurgitation.? smokes 1/2 a day cigarettes. PFSH Medical History Anorexia Arthritis Cough GERD (gastroesophageal reflux disease) Gout Hiatal hernia Hx of low back pain Smoker Surgical History H/O elbow surgery Hx of esophagogastroduodenoscopy Family History Other No family history of coronary artery disease Social History Are you a primary wound care specialist to a significant other at home: No Do you presently have visiting nurse or other home services: No Patient Tobacco Use Status: Current everyday Tobacco user Tobacco use type: Cigarette Cigarette Packs Per Day: 1 Cigarettes Per Day: 20.0 Years Smoked: 60+ Advance Directives Date on File: 08/14/21 service: No Review of Systems Const All systems reviewed & are unremarkable except as noted in HPI and below ENT Reports Normal hearing present Neuro Reports Normal hearing present, Denies Abnormal speech present and Denies Sensory deficit (Neuro) Physical Exam Vital Signs: Last Vital Signs Pulse 78 12/10/22 09:23 Resp 14 12/10/22 09:23 BP 140/68 H 12/10/22 09:23 Pulse Ox 97 12/10/22 09:23 Oxygen Delivery Method Room Air 12/10/22 09:23 BMI result Body Mass Index 21.0 Const General: no acute distress Orientation/consciousness: patient oriented x3 Eyes General: appearance normal, both eyes and all related structures Pupils: Equal, round and reactive pupils present EOM: EOMs intact bilaterally Neck Neck: Yes full ROM Chest Chest palpation & inspection: normal inspection of the chest Resp Effort & Inspection: normal respiratory effort, able to speak in complete sentences, normal respiratory pattern, no audible wheezes and no cough Cardio Jugular venous distension: no JVD GI Inspection: Yes normal to inspection Back/Spine/Pelvis Other: Tenderness on palpation on spinal but not paraspinal regions of the lumbar spine. Able to flex forward to about 30 degrees but not for than that. Unable to flex himself backwards. Dmitriy test is negative bilaterally. Gaenslen test is positive bilaterally. SLR is positive bilaterally. Lassegue test is positive bilaterally. Demonstrate normal strength of bilateral lower extremities by standing on bilateral tiptoes and bilateral heels. Loading test is positive on the left. Tenderness on palpation in projection of paraspinal region at L1-L2 L3 and L4 lumbar vertebra as. Neuro General: patient oriented x3 and gait normal Cranial nerves: Yes CN's II-XII intact bilaterally, Yes Equal, round and reactive pupils present, Yes Normal hearing present and Yes Ability to bilaterally elevate shoulders present Speech: No Abnormal speech present Gait exam (Neuro): Normal gait present Motor exam (neuro): 5/5 motor strength present throughout Sensory Exam: No Sensory deficit (Neuro) Extrem General: No pedal edema Psych Speech and movement: Normal speech and movement present Affect: normal affect Attitude: cooperative Thought process: Normal thought process present Thought content: Normal thought content present Insight: Good insight present (Psych) Judgement: Good judgement present (Psych) Assessment & Plan Assessment & Plan (1) Spondylosis of lumbar region without myelopathy or radiculopathy: Code(s): M47.816 - Spondylosis without myelopathy or radiculopathy, lumbar region (2) Sacroiliitis: Code(s): M46.1 - Sacroiliitis, not elsewhere classified (3) Sacroiliac joint dysfunction of both sides: Code(s): M53.3 - Sacrococcygeal disorders, not elsewhere classified (4) Arthropathy of lumbar facet joint: Code(s): M47.816 - Spondylosis without myelopathy or radiculopathy, lumbar region Plan left sided diagnostic L1-L2-L3-* medial branch block - no results. PSSP t-x with epidurals and facet joint block lower lumbar spine was not effective. SCS and ITDD discussed, brochures were given to read. Dario SCS high position vs ITDD opioids and/or bupivacaine will be planned if he wants to get it.. Option to treat his pain with oral opioids considering advanced age and multiple comorbidities was discussed with the patient. Currently no new admissions in the chronic opioid program here so he would need to pursue this option with PCP. 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 Dr. Mcneal, the urologist's opinion is requested. Next appointment is as needed. Coding Level of Care Code Est Pt Level 4 (18950) Diagnoses Spondylosis of lumbar region without myelopathy or radiculopathy M47.816 Sacroiliitis M46.1 Sacroiliac joint dysfunction of both sides M53.3 Arthropathy of lumbar facet joint M47.816
[2022-12-10 09:23] VITALS: BP 140/68; PULSE 78; RESP 14; O2SAT 97; BMI 21.0
== END 2022-12-10 10:01 | disposition home or self-care (01) ==
PROVIDERS: PCP Internal Medicine; Visit Provider Anesthesiology
DX: M47.816 Spondylosis without myelopathy or radiculopathy, lumbar region (principal); M46.1 Sacroiliitis, not elsewhere classified; M53.3 Sacrococcygeal disorders, not elsewhere classified
CPT/HCPCS: 99214

== ENCOUNTER → 2022-12-10 09:11 | Outpatient (BNVA) | payer MEDICARE, SELFPAY | PROVIDERS: PCP Internal Medicine; Visit Provider Anesthesiology | DX: M47.816 Spondylosis without myelopathy or radiculopathy, lumbar region (principal); M46.1 Sacroiliitis, not elsewhere classified; M53.3 Sacrococcygeal disorders, not elsewhere classified | CPT/HCPCS: 99212 ==

== ENCOUNTER 2024-11-29 13:35 | Emergency (ER) | payer MEDICARE, SELFPAY ==
[2024-11-29 14:27] VITALS: BP 210/80; PULSE 102; RESP 16; TEMP 36.5; O2SAT 98; BMI 19.1
[2024-11-29 15:34] LABS: Hemoglobin 13.6 g/dl (14.0-18.0); NRBC Abs Auto 0.000 X10*3/uL (0.0-0.012); NRBC Pct Auto 0.0 /100WBC (0.0-0.2); PLT CLUMP 1; SCAN SMEAR FLAG 1
--- OUTSIDE RECORDS SUMMARY | 2024-11-29 15:35 | XMS_ITS | Patient Health Record ---
Author Organization [facility] Address [address] [place] [address] Care Team Providers Care School Attendance Secretary Name Role Phone Rohit ALFONSO, Alvin Primary Care Provider Unavail able Carolin Markus Unavailable [phone] Allergies No Known Allergies Reason For Referral No Information Medications Medication SIG (Take, Route, Frequency, Duration) Notes Start Date End Date Status LORazepam 0.5 MG Oral for 3 Ac tive amLODIPine Besylate 5 MG TAKE 1 TABLET B Y MOUTH EVERY DAY Diagnosis Unavailable Oral for 90 Active Valsartan 40 MG TAKE 1 TABLET BY CASTILLO TH TWICE DAILY Oral for 30 Active Folic Acid 1 MG Oral for 30 Ac tive Atorvastatin Calcium 80 MG TAKE 1 TABLET BY MOUTH DAILY AT BEDTIME Oral for 30 Active Metoprolol Succinate ER 25 MG TAKE 1 TABLET BY MOUTH DAILY Oral for 30 Active Aspirin Low Dose 81 MG TAKE 1 TABLET BY MOUTH DAILY Oral for 30 Active Eliquis 5 MG TAKE 1 TABLET BY CASTILLO TH TWICE DAILY Oral for 30 Active Omeprazole 40 MG TAKE 1 CAPSULE BY MO UTH EVERY MORNING for 30 Not-Taking Advil Not-Taking Sucralfate 1 GM 1 tablet on an empty stomach Orally Three times a day about thirty minutes before the meal for 30 day(s) Not-Takin g Immunizations Vaccine Route Administration Date Status Comme nts Influenza Unknown 07/31/2021 Refused Social History Tobacco Use: Social History Observation Description Date Details (start date - stop date) Current Smoker NA - NA Tobacco Use/Smoking Question Answer Notes Patient is a current smoker How often do you smoke cigarettes? every day How many cigarettes a day do you smoke? 5 or les s Alcohol Screen Question Answer Notes Did you have a drink containing alcohol in the p ast year? No Points 0 Interpretation Negative Section Notes: Previous heavy drinker with whiskey but stopped 20 yrs ago, then daily 5-6 beers, then in 03/2021 cut down to just occasional beer. Smokes 1 ppd Previous heavy drinker with whiskey but stopped 20 yrs ago, then daily 5-6 beers, then in 03/2021 cut down to just occasional beer. Smokes 1 to 1 1/2 ppd since age 11 Previous heavy drinker with whiskey but stopped 20 yrs ago, then daily 5-6 beers, then in 03/2021 cut down to just occasional beer. Smokes 1 to 1 1/2 ppd since age 11 Previous heavy drinker with whiskey but stopped 20 yrs ago and switched to a daily 5-6 beers, then in 03/2021 cut down to just occasional beer. Smokes 1 to 1 1/2 ppd since age 11 Problems Problem Type SNOMED Code ICD Code Onset Dates Problem Status W/U Status Risk Notes Problem Screening for malignant neoplasm of colon (847965152) Encounter for screening for malignant neoplasm of colon (Z12.11) Active confirmed Problem 82264726 Weight loss (R63.4) Active confirmed Problem 645118585 Flatulence (R14.3) Active confirmed Problem 66674891 Anorexia (R63.0) Active confirmed Problem 830374538 Early satiety (R68.81) Active confirmed Problem Gastric polyp (12963478) Gastric polyp (K31.7) Active confirmed Problem Hiatal hernia (88352892) Hiatal hernia (K44.9) Active confirmed Problem 916144520 Anemia, unspecif ied type (D64.9) Active confirmed Problem 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 Problem 788361906 Lactose intolera nce (E73.9) Active confirmed Problem Esophageal reflux finding (643432647) Gastroesophageal reflux (K21.9) Active confirmed Problem Diverticulosis of colon (730304282) Diverticulosis of colon (K57.30) Active confirmed Problem Benign neoplasm of small intestine (54037386) 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) Active confirmed Plan Of Treatment Pending Test Test Name Order Date CHEM 7 PROFILE 08/15/2021 LIVER PROFILE 08/15/2021 IRON + IBC (FE) 08/15/2021 CRP 08/15/2021 CBC w DIFF 08/15/2021 SED RATE (ESR) 08/15/2021 CELIAC PANEL #10 08/15/2021 Ferritin 08/15/2021 Vitamin B12 and Folate 08/15/2021 TSH reflex Free T4 08/15/2021 Future Test Test Name Order Date UPPER GI ENDOSCOPY 07/31/2021 UPPER GI ENDOSCOPY 09/02/2021 COLONOSCOPY 09/02/2021 Insurance Providers Payer Name Payer Address Payer Phone Subscriber Number Group Number Insured Name Patient Relationship to Insured Coverage Start Date Coverage End Date [facility] Medicare Advantage Plan [address] [address] [place] [address] [id number] VARUN TTE, GERRY Self - patient is the insured Medical (General) History Medical History History ICD Code Denies FL,DM,CVA,Lung disease,renal dise ase Gout Back pain with lumbosacral s pine and disc disease seen on CT scan from 07/30/2021 Markedly elevated sedimentat ion rate, ferritin level, and C-reactive protein on laboratories from March of 2021 through June of 2021. There was some improvement in 08/2021, although they were still elevated. Normocytic anemia--low Iron sat, but anthony vated Ferritin EGD in 08/2021-duodenal tubul ar adenomas, gastritis but neg. H.pylori, reflux and small area of Isaac's but negative dysplasia Repeat upper endoscopy in 2021 removed multiple tubular adenomas from the duodenum; the area of the major papilla appeared normal. Colonoscopy in September of 2021 revealed onl y a hyperplastic polyp Hypertension FL in 03/2022. He describes being told of a leaking heart valve (? Aortic insufficiency?) and need for open heart surgery for valve replacement Surgical History Surgery Date(Month/Year) Left elbow
[2024-11-29 15:36] LABS: Hematocrit 40.3 % (42.0-52.0); Imm Gran Abs Auto 0.02 X10*3/uL (0.00-0.03); Imm Gran Pct Auto 0.4 % (0.0-0.4); Lymphocytes Absolute Auto 0.7 X10*3/uL (1.2-4.9); MANUAL DIFF FLAG SCAN; Mean Corpuscular HGB Conc 33.7 g/dl (31.0-36.0); Mean Corpuscular Hemoglobin 29.8 pg (27.0-33.0); Mean Corpuscular Volume 88.4 fL (80.0-98.0); Red Blood Count 4.56 X10*6/uL (4.60-5.80)
--- OUTSIDE RECORDS SUMMARY | 2024-11-29 15:36 | XMS_ITS | Clinical Summary ---
Author Organization [facility] Address [address] [place] [address] Phone Care Team Providers Care Children'S Aide Name Role Phone Gagan Gamez MD Primary Care Provider [phone] Social History Tobacco Use Types Packs/Day Years Used Date Smoking Tobacco: Never Assessed Education Answer Date Recorded Are you interested in more education? Not on mary e 08/08/2022 Are you concerned about learning? Not on file 08/08/2022 No 08/08/2022 No 08/08/2022 Digital Access Answer Date Recorded No 09/08/2022 No 09/08/2022 Reliable internet access at home? Not on file 09/08/2022 Device with a working camera? Not on file Sex and Gender Information Value Date Recorded Sex Assigned at Not on file Legal Sex Male 11:36 AM EDT Gender Identity Not on file Sexual Orientation Not on file Plan of Treatment Not on file Medical Devices Not on file Insurance [address] [place] [address] [facility] MEDICARE REPLACEMENT [address] [place] [address] [facility] MEDICARE REPLACEMENT [address] [place] [address] [facility]IC[facility] REPLACEMENT [address] [place] [address] [facility]ICARE REPLACEMENT [address] [place] [address] [facility]ICARE REPLACEMENT [address] [place] [address] [facility] MEDICARE REPLACEMENT [address] [place] [address] [facility] MEDICARE REPLACEMENT [address] [place] [place] [id number] [place] [address] [address] MEDICARE REPLACEMENT Care Teams Children'S Aide Relationship Specialty Start Date End Date Gagan Gamez MD PCP - General Obstetrics and Gynecology 07/07/21 Additional Source Comments The information contained in this document represents components of the legal health record. It is not the complete legal health record.[facility]
--- OUTSIDE RECORDS SUMMARY | 2024-11-29 15:36 | XMS_ITS | Patient Health Record ---
[facility] Marlene nahum Gleason Address [address] [place] [address] Support Name Relationship Address Phone Joe Guzman Guarantor Unknown Allergies No Known Allergies Reason For Referral No Information Medications Medication SIG (Take, Route, Frequency, Duration) Notes Start Date End Date Status Entresto Active Atorvastatin Calcium 80 MG TAKE 1 TABLET BY MOUTH EVERY DAY Oral; Duration: 90 Days Active Metoprolol Succinate ER 50 MG TAKE 1 TABLET BY MOUTH EVERY DAY Oral; Duration: 90 Days Active Valsartan 80 MG TAKE 1 TABLET BY CASTILLO TH TWICE DAILY Oral; Duration: 90 Days Active Aspirin Low Dose 81 MG TAKE 1 TABLET BY MOUTH DAILY FOR 30 DAYS Oral; Duration: 30 Days Active Immunizations Vaccine Route Administration Date Status Commsveta nts COVID-19 Pfizer BioNTech Vaccine Unknown 06/13/2020 Administered 1st dose: 05/23 Social History Tobacco Use: Social History Observation Description Date Details (start date - stop date) Current Smoker NA - NA Tobacco Use/Smoking Question Answer Notes Are you a: current smoker How often do you smoke cigarettes? every day How many cigarettes a day do you smoke? 6-10 How soon after you wake up do you smoke your fir st cigarette? 6-30 minutes Alcohol Screen Question Answer Notes Did you have a drink containing alcohol in the p ast year? No Points 0 Interpretation Negative Tobacco use other than smoking: Question Answer Notes Are you an other tobacco user? No Problems Problem Type SNOMED Code ICD Code Onset Dates Problem Status W/U Status Risk Notes Problem Plantar wart (47864927) Plantar wart (B07.0) Active confirmed Plan Of Treatment No Information Insurance Providers Payer Name Payer Address Payer Phone Subscriber Number Group Number Insured Name Patient Relationship to Insured Coverage Start Date Coverage End Date [employer] Medicare [id number] [address] [address] [place] [address] [id number] Eddie lupe Joe Self - patient is the insured Medical (General) History Medical History History ICD Code Broken bones chicken pox Jointa/bones implants/screws Back,Hip,and Knee pain Heart condition Surgical History Surgery Date(Month/Year) heart surgery unspecified Hospitalization History Reason Date(Month/Year) [facility] – [place] Pain 2022
[2024-11-29 15:46] LABS: Alanine Aminotransferase 15 U/L (0-40); Albumin Level 4.3 g/dL (3.5-5.0); Alkaline Phosphatase 104 U/L (39-117); Anion Gap 15 (12-20); Aspartate Amino Transferase 29 U/L (5-37); Blood Urea Nitrogen 27 mg/dL (9-16); Calcium 9.0 mg/dL (8.4-10.2); Carbon Dioxide 26 mmol/L (22-29); Chloride 103 mmol/L (96-108); Creatinine Clr Calc Pharmacy 34.9; Estimated Glomerular Filt Rate 50; Lipase 18 U/L (8-78); Potassium 4.9 mmol/L (3.3-5.1); Sodium 139 mmol/L (135-145); Total Protein 7.3 g/dL (6.5-8.0)
[2024-11-29 15:48] LABS: Platelet Count 115 X10*3/uL (160-400); White Blood Count 4.8 X10*3/uL (4.8-10.8)
--- NOTE | 2024-11-29 15:55 | ED.GENADULT ---
HPI - General Adult General Chief complaint: General Medical Stated complaint: rash on chest Time Seen by Provider: 11/29/24 14:38 Source: patient, RN notes reviewed and old records reviewed Mode of arrival: ambulatory Limitations: no limitations History of Present Illness ED Provider: Genie MAGUIRE narrative: 79-year-old male with past medical history significant for hypertension, coronary artery disease, tobacco dependence, gout presents for evaluation of a rash. Patient reports a rash to the left side of his chest and back for the last few days pain He reports that his mostly itchy but not painful He reports the rash is ?making bubbles. Denies any known sick contacts Denies any fevers or chills He also expresses interest in assistance with meals. He reports that he has bad hips and can only stand for 5 minutes at a time so he has trouble picking himself dinner He reports that he is able to get around his house and perform other activities of daily living but is only having trouble with cooking Related Data Previous Rx's ?Medication ?Instructions ?Recorded aspirin 81 mg tablet,delayed 81 mg PO DAILY #30 tabs 02/25/22 release atorvastatin 80 mg tablet 80 mg PO DAILY #30 tabs 02/25/22 heparin (porcine) 25,000 unit/250 25,000 unit (250 mL) continuous IV 02/25/22 mL in 0.45 % sodium chloride IV infusion .Q0M #1 mL soln heparin (porcine) 5,000 unit/mL 2,600 unit (0.52 mL) IVPUSH 02/25/22 injection solution PROTOCOL BOLUS PRN 40 Unit/Kg - Heparin Protocol #1 mL nitroglycerin 2 % transdermal 0.5 inch transdermal 02/25/22 ointment (Nitro-Bid) TID@0800,1400,2000 #30 grams prednisone 20 mg tablet 40 mg (2 x 20 mg) PO DAILY #10 tabs 11/29/24 valacyclovir 1 gram tablet 1,000 mg PO Q8H #21 tabs 11/29/24 Allergies Allergy/AdvReac Type Severity Reaction Status Date / Time No Known Allergies Allergy Verified 11/29/24 14:31 Review of Systems Constitutional: Constitutional: Denies body ache(s), Denies chills, Denies fever(s) and Denies headache(s) Eyes: Eyes: Denies blurry vision ENT: Denies vertigo, Denies dizziness and Denies headache(s) Cardiovascular: Cardiovascular: Denies chest pain and Denies dyspnea on exertion Respiratory: Respiratory: Denies cough and Denies dyspnea on exertion Gastrointestinal: Gastrointestinal: Denies abdominal pain, Denies nausea and Denies vomiting Musculoskeletal: Musculoskeletal: Denies back pain Integumentary/Breasts: Skin/Breast: Reports pruritus and Reports rash Neurologic: Denies vertigo, Denies dizziness and Denies headache(s) Psychiatric: Psychiatric: Denies anxiety [facility] Past Medical History Medical History Anorexia Arthritis Cough GERD (gastroesophageal reflux disease) Gout Hiatal hernia Hx of low back pain Smoker Surgical History H/O elbow surgery Hx of esophagogastroduodenoscopy Family History Family History Other No family history of coronary artery disease Social History Social History Are you a primary day care worker to a significant other at home: No Do you presently have visiting nurse or other home services: No Patient Tobacco Use Status: Current everyday Tobacco user Tobacco use type: Cigarette Cigarette Packs Per Day: 1 Cigarettes Per Day: 20.0 Years Smoked: 60+ Advance Directives: Yes Advance Directives on File: Yes Advance Directives Date on File: 08/14/21 service: No Physical Exam ED Vital Signs: Vital Signs - 24 hr 11/29/24 14:27 11/29/24 16:16 Temperature 97.7 F 97.7 F Pulse Rate 102 H 102 H Respiratory Rate 16 16 Blood Pressure 210/80 H 210/80 H Pulse Oximetry 98 98 Oxygen Delivery Method Room Air Room Air BMI result Body Mass Index 19.1 Const General: healthy appearing, comfortable, no acute distress, alert and awake Orientation/consciousness: patient oriented x3 HENMT Head: Yes normocephalic and Yes atraumatic Throat: Yes posterior oropharynx normal Eyes Eyelids: Yes eyelids normal Conjunctivae: conjunctivae normal Sclerae: sclerae normal Corneas: corneas normal Pupils: Equal, round and reactive pupils present EOM: EOMs intact bilaterally Neck Neck: Yes full ROM Resp Effort & Inspection: normal respiratory effort, able to speak in complete sentences and not labored Skin Other: Vesicular rash in a single dermatome of the left chest radiating around to the left flank and left back that does not cross midline General skin exam: elasticity normal Neuro General: patient oriented x3 Cranial nerves: Yes Equal, round and reactive pupils present and Yes Bilaterally intact EOM present Cognition (Neuro): normal cognition Extrem Other: Moving all extremities well without any obvious deformities Medical Decision Making Medical Decision Making [facility] Narrative: 79-year-old male presents for evaluation of a rash. His rashes very consistent with shingles as it does not cross midline, falls a single dermatome is itching with some pain. We will treat with prednisone and valacyclovir. Given the patient's difficulties cooking himself meals he reports he is skipping meals. I discussed possibly case management and physical therapy evaluation. The patient does not wish to go inpatient for rehab and physical therapy. He reports he would just like assistance with meals. I did discuss with our case management team and they were able to place a consult to [facility] so the patien can safely be set up with meals on wheels. The patient is hypertensive on arrival, I did check basic labs. He is mildly anemic, his hemoglobin 13.6 hematocrit of 40.3 is slightly improved compared to his last labs from 2022. He has no other significant chemistry abnormalities. His BUN is slightly elevated which could be due to weeks hypertension. However he has no chest pain. No shortness of breath, no back pain or lightheadedness. Differential Diagnosis Differential Diagnoses: The differential diagnosis associated with the presentation includes Shingles Herpes zoster Varicella zoster Hypertension Uncontrolled hypertension Failure to thrive Admission/Observation Consideration of admission/observation: Escalation of care including admission/observation considered Lab Data [facility] Lab Attestation statement: I reviewed the patient's lab results. As above 11/29/24 15:10 11/29/24 15:10 Labs: Lab Results 11/29/24 Range/Units 15:10 WBC 4.8 (4.8-10.8) X10*3/uL RBC 4.56 L D (4.60-5.80) X10*6/uL Hgb 13.6 L D (14.0-18.0) g/dl Hct 40.3 L D (42.0-52.0) % MCV 88.4 (80.0-98.0) fL MCH 29.8 (27.0-33.0) pg MCHC 33.7 (31.0-36.0) g/dl RDW 14.8 (11.0-16.0) % Plt Count 115 L D (160-400) X10*3/uL MPV 10.8 (9.4-12.4) fL Immature Gran % (Auto) 0.4 (0.0-0.4) % Neut % (Auto) 72.5 (45-73) % Lymph % (Auto) 14.0 L (20-40) % Bulloch % (Auto) 12.1 H (2-11) % Eos % (Auto) 0.4 (0-4) % Baso % (Auto) 0.6 (0-2) % Lymph # (Auto) 0.7 L (1.2-4.9) X10*3/uL [place] # (Auto) 0.6 (0.1-1.2) X10*3/uL Eos # (Auto) 0.0 (0.0-0.4) X10*3/uL Baso # (Auto) 0.0 (0.0-0.2) X10*3/uL Abs Immat Gran (auto) 0.02 (0.00-0.03) X10*3/uL Absolute Neuts (auto) 3.5 (2.0-8.3) x10*3/uL Absolute Nucleated RBC 0.000 (0.0-0.012) X10*3/uL Nucleated RBC % (auto) 0.0 (0.0-0.2) /100WBC Sodium 139 (135-145) mmol/L Potassium 4.9 (3.3-5.1) mmol/L Chloride 103 (96-108) mmol/L Carbon Dioxide 26 (22-29) mmol/L Anion Gap 15 (12-20) BUN 27 H (9-16) mg/dL Creatinine 1.36 (0.5-1.4) mg/dL Estim Creat Clear Calc 34.9 Estimated GFR 50 Random Glucose 114 (60-115) mg/dL Calcium 9.0 (8.4-10.2) mg/dL Total Bilirubin 0.9 (0.0-1.0) mg/dL AST 29 (5-37) U/L ALT 15 (0-40) U/L Alkaline Phosphatase 104 (39-117) U/L Total Protein 7.3 (6.5-8.0) g/dL Albumin 4.3 (3.5-5.0) g/dL Lipase 18 (8-78) U/L Influenza Type A (PCR) NEGATIVE (Negative) Influenza Type B (PCR) NEGATIVE (Negative) RSV RNA Qual (PCR) NEGATIVE (Negative) SARS-CoV-2 RNA (RT-PCR) NEGATIVE (Negative) Discharge Plan Discharge Clinical Impression: Shingles, Hypertension Patient Disposition: Home, Self-Care Instructions: Shingles (ED), Chronic Hypertension (ED) Additional Instructions: The rash that you have is called shingles. I prescribed medication called prednisone and valacyclovir that should help clear up the rash but it will still take at least a few days You may use Tylenol or ibuprofen for pain. Your blood pressure was elevated today and I recommend continuing your medications as prescribed. A consult was placed to [facility] to help facilitate getting you assistance with food. Return for new or worsening symptoms or if you feel that you can not manage by herself at home Prescriptions: New prednisone 20 mg tablet 40 mg PO DAILY Qty: 10 0RF valacyclovir 1 gram tablet 1,000 mg PO Q8H Qty: 21 0RF No Action atorvastatin 80 mg Tablet 80 mg PO DAILY Qty: 30 0RF Nitro-Bid 2 % Ointment 0.5 inch transdermal TID@0800,1400,2000 Qty: 30 0RF heparin (porcine) 5,000 unit/mL Solution 2,600 unit IVPUSH PROTOCOL BOLUS PRN (Reason: 40 Unit/Kg - Heparin Protocol) Qty: 1 0RF heparin(porcine) in 0.45% NaCl 25,000 unit/250 mL Parenteral Solution 25,000 unit continuous IV infusion .Q0M Qty: 1 0RF aspirin 81 mg Tablet,Delayed Release (Dr/Ec) 81 mg PO DAILY Qty: 30 0RF Interventions: ED Discharge Assessment Last Done: 11/29/24 16:16 Discharge Date/Time: 11/29/24 16:17 Print Language: Bol[place]ian
[2024-11-29 16:12] LABS: Resp Syncy Virus RNA Qual PCR NEGATIVE (Negative); SARS COV2 PCR INHOUSE NEGATIVE (Negative)
[2024-11-29 16:16] VITALS: BP 210/80; PULSE 102; RESP 16; TEMP 36.5; O2SAT 98
== END 2024-11-29 16:17 | disposition home or self-care (01) ==
PROVIDERS: Physician Assistant; Emergency Provider Emergency Medicine; PCP Internal Medicine
DX: B02.9 Zoster without complications (principal); I10 Essential (primary) hypertension; Z79.899 Other long term (current) drug therapy; Z72.0 Tobacco use
CPT/HCPCS: 80053; 83690; 85025; 87637; 99282; 99283